=== PATIENT | male | born 1960 | race Two or more races ===

== ENCOUNTER 2025-01-31 14:25 | Inpatient (IN) | payer MEDICAID, OTHER ==
[~2025-01-31] VITALS: Ht 182.9 cm; Wt 93.1 kg
--- NOTE | 2025-01-31 15:22 | ED.PDOC ---
HPI (NEURO) HPI Comments 64 y/o M, with PMHx of HTN, HLD, and thyroid disease presents to the ED for CC of syncope. Patient states, he has had x2 syncopal episodes since, Thursday (01/28/25). 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 Patient relays, that he went to his PCP office today (01/31/25) for SS and was relayed to the ED for further evaluation and to rule out stroke. Patient denies weakness, changes in speech, blurred vision, or disorientation. Chief Complaint: Syncope Time Seen by MD: 15:05 Reviewed Notes: Nurses Notes, Medications, Allergies Information Source: Patient Mode of Arrival: Ambulatory Severity: Moderate Dizziness/Weakness Severity: Unable to do activities Headache Severity: None Timing: Days Duration: Since onset Prehospital treatment: None Weakness Location: Generalized Onset: At rest Circumstances: Recent stress Symptoms: Faintness Before: Normal During: Awake After: Normal Mentation History of: None Modifying factors: Nothing Associated Signs and Symptoms: None Past Medical History PAST MEDICAL HISTORY: High Lipids, HTN, Thyroid Surgical History: Denies all surgeries Family History Family History: Unknown Social History Smoker: Non-Smoker Alcohol: Denies ETOH Use Drugs: Denies Drug Use Lives In: Home Constitutional: denies: chills, diaphoresis, fatigue, fever, malaise, sweats, weakness, others EENTM: denies: blurred vision, double vision, ear bleeding, ear discharge, ear drainage, ear pain, ear ringing, eye pain, eye redness, hearing loss, mouth pain, mouth swelling, nasal discharge, nose bleeding, nose congestion, nose pain, photophobia, tearing, throat pain, throat swelling, voice changes, others Respiratory: denies: cough, hemoptysis, orthopnea, SOB at rest, shortness of breath, SOB with excertion, stridor, wheezing, others Cardiovascular: denies: chest pain, dizzy spells, diaphoresis, Dyspnea on exertion, edema, irregular heart beat, left arm pain, lightheadedness, palpitations, PND, syncope, others Gastrointestinal: denies: abdomen distended, abdominal pain, blood streaked bowels, constipated, diarrhea, dysphagia, difficulty swallowing, hematemesis, melena, nausea, poor appetite, poor fluid intake, rectal bleeding, rectal pain, vomiting, others Genitourinary: denies: burning, dysuria, flank pain, frequency, hematuria, inc ontinence, penile discharge, penile sore, pain, testicle pain, testicle swelling, urgency, others Neurological: reports: fainting; denies: dizziness, headache, left sided numbness, left sided weakness, numbness, paresthesia, pre-existing deficit, right sided numbness, right sided weakness, seizure, speech problems, tingling, tremors, weakness, others Musculoskeletal: denies: back pain, gout, joint pain, joint swelling, muscle pain, muscle stiffness, neck pain, others Integumetry: denies: bruises, change in color, change in hair/nails, dryness, laceration, lesions, lumps, rash, wounds, others Allergic/Immunocompromised: denies: Difficulty Healing, Frequent Infections, Hives, Itching, others Hematologic/Lymphatic: denies: anemia, blood clots, easy bleeding, easy bruising, swollen glands, others Endocrine: denies: excessive hunger, excessive sweating, excessive thirst, excessive urination, flushing, intolerance to cold, intolerance to heat, unexplained weight gain, unexplained weight loss, others Psychiatric: denies: anxiety, bipolar disorder, depression, hopeless, panic disorder, schizophrenia, sleepless, suicidal, others All Other Systems: Reviewed and Negative Physical Exam General Appearance: No Apparent Distress, Normal HEENT: Normal ENT Inspection, Pharynx Normal, TMs Normal Neck: Full Range of Motion, Non-Tender, Normal, Normal Inspection Respiratory: Chest Non-Tender, Lungs Clear, No Accessory Muscle Use, No Respiratory Distress, Normal Breath Sounds Cardiovascular: No Edema, No JVD, No Murmur, No Gallop, Normal Peripheral Pulses, Regular Rate/Rhythm Breast Exam: Deferred Gastrointestinal: No Organomegaly, Non Tender, No Pulsatile Mass, Normal Bowel Sounds, Soft Genitalia: Deferred Pelvic: Deferred Rectal: Deferred Extremities: No calf tenderness, Normal capillary refill, Normal inspection, Normal range of motion, Non-tender, No pedal edema Musculoskeletal : Apperance: Normal Neurologic: Alert, aircraft engine assembler II-XII nml as Tested, No Motor Deficits, Normal Affect, Normal Mood, No Sensory Deficits Cerebellar Function: Normal Reflexes: Normal Skin: Dry, Normal Color, Warm Lymphatic: No Adenopathy Was a procedure done? Was a procedure done?: No Differential Diagnosis (SZ) Seizure: Syncope General Weakness: Dehydration, Dysrhythmia, Electrolyte imbalance, Hypotension, TIA X-Ray, Labs, Meds, VS Vital Signs Date Time Temp Pulse Resp B/P (MAP) Pulse Ox O2 Delivery O2 Flow Rate FiO2 01/31/25 17:03 98.3 60 16 166/124 (138) 98 98.3 01/31/25 17:03 Room Air* 0 21 01/31/25 14:27 98.4 91 20 178/112 97 98.4 Lab Test 01/31/25 16:13 01/31/25 15:13 Range/Units Troponin I High Sensitivity 5 5 </=54 ng/L White Blood Count 6.2 4.4-10.8 10^3/uL Red Blood Count 5.30 4.5-5.90 10^6/uL Hemoglobin 15.8 13.5-17.5 g/dL Hematocrit 46.5 41.0-53.0 % Mean Corpuscular Volume 87.6 80.0-100.0 fL Mean Corpuscular Hemoglobin 29.7 28.0-32.0 pg Mean Corpuscular Hemoglobin Concent 33.9 32.0-36.0 g/dL Red Cell Distribution Width 15.1 H 11.8-14.3 % Platelet Count 162 140-450 10^3/uL Mean Platelet Volume 8.7 6.9-10.8 fL Neutrophils (%) (Auto) 73.2 37.0-80.0 % Lymphocytes (%) (Auto) 16.4 10.0-50.0 % Monocytes (%) (Auto) 7.9 0.0-12.0 % Eosinophils (%) (Auto) 1.9 0.0-7.0 % Basophils (%) (Auto) 0.6 0.0-2.0 % Neutrophils # (Auto) 4.5 1.6-8.6 10 ^3/uL Lymphocytes # (Auto) 1.0 0.4-5.4 10 ^3/uL Monocytes # (Auto) 0.5 0-1.3 10 ^3/uL Eosinophils # (Auto) 0.1 0-0.8 10 ^3/uL Basophils # (Auto) 0 0-0.2 10 ^3/uL Nucleated Red Blood Cells 0.1 % Sodium Level 143 136-145 mmol/L Potassium Level 3.9 3.5-5.1 mmol/L Chloride Level 104 98-107 mmol/L Carbon Dioxide Level 28 20-31 mmol/L Anion Gap 11 5-15 Blood Urea Nitrogen 11 9-23 mg/dL Creatinine 1.22 0.700-1.30 mg/dL Glomerular Filtration Rate Calc 67 >90 mL/min BUN/Creatinine Ratio 9.0 L 10.0-20.0 Serum Glucose 94 74-106 mg/dL Calcium Level 9.0 8.7-10.4 mg/dL [place] [id number] Ph: [phone] DIAGNOSTIC IMAGING Diagnostic Imaging Report : [id number] Signed PATIENT: CARLOS VILLELA ACCT: [id number] UNIT: [id number] : 1960 LOC: ER ROOM / BED: / AGE / SEX: 64 / M ADM STATUS: REG ER SERVICE 1504 ORDERING PHYSICIAN: CHUCK ORDOÑEZ MD PROCEDURE(s): CXR1 - CHEST XRAY 1 VIEW REASON: syncope ORDER NUMBER(s): [id number], ACCESSION NUMBER(s): [id number] EXAM: XY CHEST XRAY 1 VIEW HISTORY: syncope COMPARISON: None TECHNIQUE: Portable upright AP view of the chest was performed. FINDINGS: No pneumothorax, consolidative infiltrates, or pulmonary edema. The heart is not enlarged. There is thoracic degenerative disc disease. IMPRESSION: No acute intrathoracic process. ATED BY: IRENE MUNOZ MD DICTATED DATE/TIME: 01/31/251544 SIGNED BY: IRENE MUNOZ MD SIGNED DATE/TIME: 01/31/25 154 CC: Time of 1ST Reevaluation: 15:30 Reevaluation 1ST: Unchanged Time of 2ND Reevaluation: 18:23 Reevaluation 2ND: Improved Patient Education/Counseling: Diagnosis, Treatment, Prognosis, Need For Follow Up Family Education/Counseling: Diagnosis, Treatment, Prognosis, Need For Follow Up Comments This is a patient who presents to the ER after having suffer a syncopal episode. However patient is asymptomatic now my concerns are mostly for arrhythmias. Piece does not have any neurologic deficits. We have not caught any arrhythmias here in the emergency room on the EKGs so far therefore patient will need to be on the monitor as it admitted patient. Additional Information The following tests were ordered, and results were reviewed by me: EKG X3, TROP ONIN X3, BMP, CBC, CXR Additional information was gathered from interviewing the following independent historian: FRIEND I reviewed and agreed with the following test results read by other provider: CXR I discussed treatments and results with medical personnel and: PATIENT Comprehensive systems review obtained and negative except for what is stated in the HPI. Departure 1 Departure Time of Disposition: 18:24 Impression: Primary Impression: Syncope Disposition: ADMITTED INPATIENT Admit to: Tele Condition: Serious Discharged With: Self, Friend Critical Care Note Critical Care Time?: Yes (55 min-critical care time only) Critical care comment: due to concerns for patient's condition deteriorating, the care required my highest level of attention and readiness to intervene. i assessed the patient's condition, ordered the proper tests and treatments, reassessed for response and reviewed the results. i communicated with medical personnel and formulated a plan of care. total critical care time does not include any procedures Stability Stability form required: No I personally scribed for CHUCK ORDOÑEZ MD ([email or web address]) on 01/31/25 at 15:22. Electronically submitted by Rosa Nicholson ([email or web address]). I personally scribed for CHUCK ORDOÑEZ MD ([email or web address]) on 01/31/25 at 16:52. Electronically submitted by Rosa Nicholson ([email or web address]). CHUCK ORDOÑEZ MD Jan 31, 2025 15:22
[2025-01-31 15:37] LABS: Hematocrit 46.5 % (41.0-53.0); Hemoglobin 15.8 g/dL (13.5-17.5); Mean Corpuscular Hemoglobin 29.7 pg (28.0-32.0); Mean Corpuscular Volume 87.6 fL (80.0-100.0); Nucleated Red Blood Cells % 0.1 %
[2025-01-31 15:44] LABS: Chloride 104 mmol/L (98-107); Potassium 3.9 mmol/L (3.5-5.1); Sodium 143 mmol/L (136-145)
[2025-01-31 15:45] LABS: Anion Gap 11 (5-15); Calcium 9.0 mg/dL (8.7-10.4); Carbon Dioxide 28 mmol/L (20-31)
--- NOTE | 2025-01-31 15:48 | DVH ---
EXAM: XY CHEST XRAY 1 VIEW HISTORY: syncope COMPARISON: None TECHNIQUE: Portable upright AP view of the chest was performed. FINDINGS: No pneumothorax, consolidative infiltrates, or pulmonary edema. The heart is not enlarged. There is t horacic degenerative disc disease. IMPRESSION: No acute intrathoracic process.
[2025-01-31 15:50] LABS: BUN/Creatinine Ratio 9.0 (10.0-20.0); Blood Urea Nitrogen 11 mg/dL (9-23); Glucose 94 mg/dL (74-106)
[2025-01-31 19:33] LABS: Urine Protein, UAD 1+ (Negative)
[2025-01-31 20:06] LABS: INR 1.11 (0.9-1.15); Partial Thromboplastin Time 29.4 SEC (24.5-34.5); Prothrombin Time 11.6 sec (9.3-11.8)
[2025-01-31 20:07] VITALS: PULSE 78; RESP 20; O2SAT 97
--- NOTE | 2025-01-31 20:12 | ECG ---
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
[2025-01-31] MEDS: IOHEXOL 350 MG/ML 100ML IJ ONE (20:13)
--- NOTE | 2025-01-31 20:16 | DVH ---
EXAM: CT STROKE CTH INDICATION: cva TECHNIQUE: CT images of the head were obtained without administration of IV contrast. CT scans at [facility] use dose modulation, iterative reconstruction, and/or weight based dosing when appropriate to reduce radiation dose to as low as reasonably achievable. COMPARISON: None FINDINGS: PARENCHYMA: No acute hemorrhage. There is no mass effect, midline shift, or herniation. There is pres ervation of the solis white differentiation. Mild scattered hypoattenuation along the periventricular, centrum semiovale, and deep white matter tracts, which are nonspecific however statistically most li eugenio represent chronic microvascular ischemic change. VENTRICLES: No hydrocephalus. EXTRA-AXIAL SPACES: No extra-axial fluid collections. OTHER: The bony structures are intact. Visualized portions of the paranasal sinuses and mastoid air cells are clear. IMPRESSION: 1. No CT evidence of an acute intracranial abnormality. Chronic microvascular ischemic change inconsp icuous lacunar infarction particularly in the right centrum semiovale not excluded.
--- NOTE | 2025-01-31 21:27 | DVH ---
CLINICAL HISTORY: cva TECHNIQUE: CT angiogram of the head and neck was performed without and with intravenous contrast. 3D MIP reconstructed images were created and archived on the PACS system. This exam was performed accord ing to our departmental dose optimization program. Up-to-date CT equipment and radiation dose reducti on techniques are utilized as appropriate. CTDI 34 DLP 17 COMPARISON: CT STROKE CTH on DOS: 01/31/25 FINDINGS: CTA NECK: The common carotid, internal carotid, and vertebral arteries are patent with no evidence for high gra de narrowing, occlusion, and dissection. There is no significant narrowing at the carotid bulbs per N ASCET criteria. CTA HEAD: The anterior and posterior intracranial circulations are intact with no evidence for occlusion or ane urysm. There is a high-grade stenosis at the right carotid terminus. There is a small caliber left posterior communicating artery. IMPRESSION: No acute CTA abnormality of the major head and neck arterial vasculature. High-grade stenosis at the right carotid terminus.
[2025-01-31] MEDS: ATORVASTATIN 20 MG TAB PO SCH (22:00)
[2025-01-31] MEDS: ENOXAPARIN SOD 100 MG/1 ML SYRINGE SC SCH (22:00)
--- NOTE | 2025-01-31 22:29 | DVHHPRES ---
History of Present Illness Resident Creating Document: BAILEY DALE History of Present Illness Mr. Mosqueda is a 64-year-old male with prior medical history of hypertension, hypothyroidism, prediabetes, and medication noncompliance, who presents today with chief complaint of syncope. The patient states he has had 2 syncopal episodes since Thursday. He refers that on Thursday he was utilizing the bathroom when he lost consciousness stating he woke up on the ground approximately 10 seconds later. The following day he had another episode where he woke up on the ground on this occasion had weakness of the left leg, which would resolve on its own. He went to see his PCP who instructed the patient to go to the emergency department. On evaluation in the ED, the patient was hypertensive with other vital signs within normal range. Initial labs show CBC and chemical panel within normal range, UA was unremarkable. In the ED the patient had sudden o nset of left face and arm weakness and numbness associated with word slurring. Twelve lead EKG showed atrial fibrillation. Head CT was done showing no evidence of an acute intracranial abnormality. patient was evaluated by tele neuro who recommended CT angio of the head and neck which showed no acute CT abnormality of the major head and neck arterial vasculature, high-grade stenosis at the right carotid terminus. The patient was started on therapeutic Lovenox, aspirin, and Lipitor. He was admitted for further workup and monitoring. Cardiovascular: HTN Endocrine: Hypothyroidism, Other (Prediabetes) Past Surgical History: Other (Back surgery) Family History: Cancer (Small-cell lung cancer in mother, father, and brother), Hypertension (Father), Other (Sister: BPD and schizophrenia) Smoke: No ALCOHOL: none Drugs: None Lives: with Family Domestic Violence: Neg Review of Systems Review of Systems Constitutional: Denies weight loss, fever and chills. HEENT: Denies changes in vision and hearing. Respiratory: Denies shortness of breath and cough Cardiovascular: Denies chest discomfort or palpitations GI: Denies abdominal distention, abdominal pain, diarrhea : Denies dysuria and urinary frequency. Musculoskeletal: Refers localized back pain secondary to previous surgery Skin: Denies rash and pruritus. Neurological: denies dizziness headache vision or hearing problems Allergies: Coded Allergies: NO KNOWN ALLERGIES (Unverified , 01/31/25) Medications Current Medications Medications Dose Ordered Sig/Humphrey Route Start Time Stop Time Status Last Admin Dose Admin Enoxaparin Sodium 90 mg Q12HR SC 01/31/25 22:00 UNV Atorvastatin Calcium 40 mg HS PO 01/31/25 22:00 UNV Exam Vital Signs Vital Signs Date Time Temp Pulse Resp B/P (MAP) Pulse Ox O2 Delivery O2 Flow Rate FiO2 01/31/25 22:09 98.1 80 20 159/106 (123) 97 98.1 01/31/25 20:07 Room Air* 0 21 Exam General: The patient alert and oriented in person place and time. Patient following commands HEENT: Normocephalic, atraumatic, normal reactive pupils, EOM intact, pink conjunctiva, pink moist mucous membrane Respiratory/pulmonary: Bilateral chest expansion, no pain on palpation of chest wall, clear lungs bilaterally, vesicular murmurs present in almost all lung f ields, no associated crackles or wheezes. Cardiovascular: At the time of examination Normal RRR, normal S1 and S2, no murmurs Abdomen: Abdomen nondistended, normal bowel sounds, soft, there is no pain to palpation in any of the abdominal quadrants, no palpable masses. Extremities: No deformities, there is no peripheral edema present at the lower extremities, normal pulses Skin: No rashes or pruritus, there is no sacral edema present at this time. Neurological: Intact cranial nerves with no focal neurologic deficits, sensation intact bilateral upper extremities and lower extremities, strength 5/5 right upper and lower extremity, strength 5/5 left upper and lower extremity. Labs/Xrays Labs Test 01/31/25 18:40 01/31/25 18:20 01/31/25 16:13 01/31/25 15:13 Range/Units Urine Color Yellow Yellow Urine Clarity Clear Clear Urine pH 8.0 5.0-9.0 Urine Specific [place] 1.023 1.001-1.035 Urine Protein 1+ H Negative Urine Ketones Trace Negative Urine Blood Negative Negative /uL Urine Nitrite Negative Negative Urine Bilirubin Negative Negative Urine Urobilinogen Normal Negative mg/dL Urine Leukocyte Esterase Negative Negative /uL Urine RBC 4 0 - 3 /hpf Urine Microscopic WBC < 1 0-3 /HPF Urine Squamous Epithelial Cells None seen <5 /hpf Urine Bacteria None seen None Seen /hpf Urine Glucose Normal Normal mg/dL Prothrombin Time 11.6 9.3-11.8 sec Prothrombin Time INR 1.11 0.9-1.15 Activated Partial Thromboplast Time 29.4 24.5-34.5 SEC Magnesium Level 2.3 1.6-2.6 mg/dL Troponin I High Sensitivity 6 </=54 ng/L White Blood Count 6.2 4.4-10.8 10^3/uL Red Blood Count 5.30 4.5-5.90 10^6/uL Hemoglobin 15.8 13.5-17.5 g/dL Hematocrit 46.5 41.0-53.0 % Mean Corpuscular Volume 87.6 80.0-100.0 fL Mean Corpuscular Hemoglobin 29.7 28.0-32.0 pg Mean Corpuscular Hemoglobin Concent 33.9 32.0-36.0 g/dL Red Cell Distribution Width 15.1 H 11.8-14.3 % Platelet Count 162 140-450 10^3/uL Mean Platelet Volume 8.7 6.9-10.8 fL Neutrophils (%) (Auto) 73.2 37.0-80.0 % Lymphocytes (%) (Auto) 16.4 10.0-50.0 % Monocytes (%) (Auto) 7.9 0.0-12.0 % Eosinophils (%) (Auto) 1.9 0.0-7.0 % Basophils (%) (Auto) 0.6 0.0-2.0 % Neutrophils # (Auto) 4.5 1.6-8.6 10 ^3/uL Lymphocytes # (Auto) 1.0 0.4-5.4 10 ^3/uL Monocytes # (Auto) 0.5 0-1.3 10 ^3/uL Eosinophils # (Auto) 0.1 0-0.8 10 ^3/uL Basophils # (Auto) 0 0-0.2 10 ^3/uL Nucleated Red Blood Cells 0.1 % Sodium Level 143 136-145 mmol/L Potassium Level 3.9 3.5-5.1 mmol/L Chloride Level 104 98-107 mmol/L Carbon Dioxide Level 28 20-31 mmol/L Anion Gap 11 5-15 Blood Urea Nitrogen 11 9-23 mg/dL Creatinine 1.22 0.700-1.30 mg/dL Glomerular Filtration Rate Calc 67 >90 mL/min BUN/Creatinine Ratio 9.0 L 10.0-20.0 Serum Glucose 94 74-106 mg/dL Calcium Level 9.0 8.7-10.4 mg/dL B-Type Natriuretic Peptide 69.30 0-100 pg/mL SEPSIS Sepsis Screen Date sepsis recognized/suspect: Jan 31, 2025 Time Sepsis recognized/suspect: 2009 Recent Procedure: No On Antibiotic Therapy: No Respiratory Rate >20: No Heart Rate >90: No Temp<36 C (96.8 F) or >38.3 C: No SBP <90 or MAP <65 mmHG: No New Acute Mental Status Change: No Is the patient on CPAP, BIPAP,: No Physician Orders Continuous Ekg Monitoring 08,12,16,20,,04 (01/31/25 15:04) Chest Xray 1 View (01/31/25 15:04) Electrocardigram (01/31/25 16:04) Electrocardigram (01/31/25 18:04) Stroke Assessment (01/31/25 19:39) Vital Signs .PER UNIT PROTOCOL (01/31/25 19:39) Meat Curer (01/31/25 19:39) Accurate Weight In Kg (01/31/25 19:39) Electrocardigram (01/31/25 19:39) Accucheck (01/31/25 19:39) Ct Head Cva (01/31/25 19:39) * Neurology Consult (01/31/25 19:39) 2 Large Bore Ivs (20mg Or Larg (01/31/25 19:39) Nursing Dysphagia Screen (01/31/25 19:39) Neuro Checks Per Unit Protocol (01/31/25 19:39) Electrocardigram (01/31/25 20:39) Electrocardigram (01/31/25 22:39) Angio Head/Neck (01/31/25 19:49) Hepatic Panel (01/31/25 22:00) Free T4 (Free Thyroxine) (01/31/25 22:00) T3 Total (01/31/25 22:00) Hemoglobin A1c (01/31/25 22:00) Carotid Duplx W Color Dop (01/31/25 22:00) Echo 2d Mode Cardiac Dop (01/31/25 22:00) Lipid Panel (02/01/25 04:00) Complete Blood Count (02/01/25 04:00) Basic Metabolic Panel (02/01/25 04:00) Phosphorus (01/31/25 22:00) Thyroid Stimulating Hormone (01/31/25 22:00) Vitamin D, 25-Hydroxy (01/31/25 22:00) Vitamin B12 (01/31/25 22:00) Admit (01/31/25 22:00) Allergies (01/31/25 22:00) Code Status (01/31/25 22:00) Cardiac Diet-2gna,Lofat,Lochol (02/01/25 Breakfast) Condition: Stable (01/31/25 22:00) Stat Ekg For Chest Pain (01/31/25 22:00) Notify Md Of Changes From Base (01/31/25 22:00) Road Advisor For 24 Hours (01/31/25 22:00) Emergency Dysrhythmia Protocol (01/31/25:00) Rhythm Strips Once Every Shift (01/31/25 22:00) Enoxaparin Sodium (Lovenox) (01/31/25 22:00) Atorvastatin (Lipitor) (01/31/25 22:00) Electrocardigram (01/31/25 22:00) Aspirin Tablet (01/31/25 22:30) Aspirin Tablet (02/01/25 10:00) * Cardiology Consult (01/31/25 22:23) Vital Signs Date Time Temp Pulse Resp B/P (MAP) Pulse Ox O2 Delivery O2 Flow Rate FiO2 01/31/25 22:09 98.1 80 20 159/106 (123) 97 98.1 01/31/25 20:11 54 01/31/25 20:07 78 20 97 Room Air* 0 21 01/31/25 19:42 98.1 80 20 156/109 (125) 97 98.1 01/31/25 17:03 98.3 60 16 166/124 (138) 98 98.3 01/31/25 17:03 Room Air* 0 21 Laboratory Tests Test 01/31/25 15:13 White Blood Count 6.2 10^3/uL (4.4-10.8) Assessment/Plan Assessment/Plan Assessment and Plan: TIA - Head CT: no CT evidence of an acute intracranial abnormality. - Carotid Doppler: No hemodynamically significant cervical stenosis - Head/ neck CT angio: No acute CTA abnormality of the major head and neck arterial vasculature, high-grade stenosis at the right carotid terminus - Aspirin 325 mg p.o. once - Atorvastatin 40 mg p.o. HS - Echocardiogram pending - ABCD2: 4 - Ordered teleneurology Right Carotid Stenosis - Head/Neck CT Angio: High grade stenosis at the right carotid terminus - Cardiology has been consulted Paroxysmal Atrial Fibrillation (chads Vasc 2) - EKG: Atrial fibrillation - Enoxaparin 90 mg (1 mg/kg) q12 hours SC Hypothyroidism - TSH: 16.44, FT4: 0.91, Total T3: 1.41 - Levothyroxine 50 mcg PO qAM Hypertensive Urgency - Monitor BP Prediabetes - I have counseled the patient on healthy lifestyle habits Medication noncompliance - I have counseled the patient on the importance of maintaining medication adherence for ample control of his health. Diet: Cardiac DVT prophylaxis: Patient is on therapeutic dose of enoxaparin GI prophylaxis: Not indicated Case discussed with Dr. Obrien Goals of care discussed with the patient and his brother , Alonzo, at bedside for over 26 minutes. MODIFIED CODE STATUS: is agreeable to ACLS drugs and BiPAP. Plan discussed with: Patient, Other (Brother, Nurses) My Orders Orders - BAILEY DALE RESIDENT Procedure Category Date Status Time Hepatic Panel LAB 01/31/25 Logged 22:00 Free T4 (Free LAB 01/31/25 Logged Thyroxine) 22:00 T3 Total LAB 01/31/25 Logged 22:00 Hemoglobin A1c LAB 01/31/25 Logged 22:00 Carotid Duplx W Color US 01/31/25 Logged DOP 22:00 Echo 2d Mode Cardiac US 01/31/25 Logged DOP 22:00 Lipid Panel LAB 02/01/25 Verified 04:00 Complete Blood Count LAB 02/01/25 Verified 04:00 Basic Metabolic Panel LAB 02/01/25 Verified 04:00 Phosphorus LAB 01/31/25 Logged 22:00 Thyroid Stimulating LAB 01/31/25 Logged Hormone 22:00 Vitamin D, 25-Hydroxy LAB 01/31/25 Logged 22:00 Vitamin B12 LAB 01/31/25 Logged 22:00 Admit ADMIT 01/31/25 Transmitted 22:00 Allergies SARAH 01/31/25 In Process 22:00 Code Status CODE 01/31/25 Transmitted 22:00 Cardiac DIET 02/01/25 Transmitted Diet-2gna,Lofat,Lochol Breakfast Condition: Stable SARAH 01/31/25 In Process 22:00 Stat Ekg For Chest SARAH 01/31/25 In Process Pain 22:00 Notify Md Of Changes [facility] 01/31/25 In Process From Base 22:00 Road Advisor For [facility] 01/31/25 In Process 24 Hours 22:00 Emergency Dysrhythmia [facility] 01/31/25 In Process Protocol 22:00 Rhythm Strips Once [facility] 01/31/25 In Process Every Shift 22:00 Enoxaparin Sodium PHA 01/31/25 Logged (Lovenox) 22:00 Atorvastatin (Lipitor) PHA 01/31/25 Logged 22:00 Electrocardigram EKG 01/31/25 Logged 22:00 Aspirin Tablet PHA 01/31/25 Verified 22:30 Aspirin Tablet PHA 02/01/25 Verified 10:00 * Cardiology Consult CONS 01/31/25 Verified 22:23 Date of Service: Jan 31, 2025 Billing Provider: TYRONE OBRIEN MD Common Visit Codes: 57503-[id number] INP/OBS CARE (HIGH) Secondary Visit Codes: [id number] CARE PLAN 30 MINUTES BAILEY DALE RESIDENT Jan 31, 2025 22:29 AMEYA JACOBS RESIDENT Feb 01, 2025 06:56
--- NOTE | 2025-01-31 23:10 | DVH ---
Carotid Duplex Clinical History: Stroke Comparison: Same day CTA head/neck Technique: Duplex Doppler evaluation of the extracranial carotid and vertebral arteries including color Doppler and spectral/pulsed waveform analysis was performed. Findings: RIGHT SIDE: The peak systolic velocities are 67 cm/s in the CCA, 35 cm/s in the ICA. The ICA/CCA ratio is 0.5. The external carotid artery is patent with peak systolic velocity of 97 cm/s proximally. There is appropriate antegrade flow in the right vertebral artery. LEFT SIDE: The peak systolic velocities are 79 cm/s in the CCA, 59 cm/s in the ICA. The ICA/CCA ratio is 0.8. The external carotid artery is patent with peak systolic velocity of 55 cm/s proximally. There is appropriate antegrade flow in the left vertebral artery. Other: Mild atherosclerotic plaque at the carotid bulbs. IMPRESSION: No hemodynamically significant cervical stenosis.
[2025-01-31 23:16] LABS: Alanine Aminotransferase 23.0 U/L (7-40); Albumin 4.6 g/dL (3.2-4.8); Alkaline Phosphatase 98.0 U/L (46-116); Total Protein 7.4 g/dL (5.7-8.2)
[2025-01-31 23:17] LABS: Bilirubin, Direct 0.2 mg/dL (<0.3); Bilirubin, Total 0.6 mg/dL (0.2-1.0)
[2025-01-31 23:44] LABS: Free T4 (Free Thyroxine) 0.91 ng/dL (0.89-1.76)
[2025-01-31 23:45] VITALS: BP 136/95; PULSE 62; RESP 18; TEMP 98.1; O2SAT 96
[2025-02-01] VITALS (8 sets, daily range): BP systolic 117–155; BP diastolic 72–102; PULSE 62–81; RESP 17–20; TEMP 97.8–98.6; O2SAT 95–99
[2025-02-01] MEDS: LEVOTHYROXINE SODIUM 50 MCG TAB PO SCH (05:39)
[2025-02-01 06:59] LABS: Hematocrit 44.4 % (41.0-53.0); Hemoglobin 15.5 g/dL (13.5-17.5); Mean Corpuscular Hemoglobin 30.6 pg (28.0-32.0); Mean Corpuscular Volume 87.7 fL (80.0-100.0); Nucleated Red Blood Cells % 0.1 %
--- NOTE | 2025-02-01 07:06 | BSKYNEURO ---
[facility] Note # Demographics Consult Type: Acute Stroke Level 2 (4.5-24 hrs) Patient Location: Inpatient First Name: Jasper Last Name: Noa Date of : 1960 Age: 64 Gender: Male Facility: [facility] Time of Initial Page (): 02/01/2025 06:05 First Contact with Site (): 02/01/2025 06:05 # HPI History: 64 yo M HTN HLD, pre-DM, hypothyroidism not taking meds since 06/2024 presents 2 episodes of syncope beginning on Thursday then the next day Thursday, LOC and woke on floor, then weakness LLE admitted 01/31 in ED with 3rd event slurred, left droop, left sided weakness. He feels back to baseline. Reached nurse # Scores Time of exam and NIHSS (): 02/01/2025 06:21 Level of Consciousness 1a: [0] = Alert; keenly responsive LOC Questions 1b: [0] = Answers both questions correctly LOC Commands 1c: [0] = Performs both tasks correctly Best Gaze 2: [0] = Normal Visual 3: [0] = No visual loss Facial Palsy 4: [0] = Normal symmetrical movements Motor Arm Left 5a: [0] = No drift Motor Arm Right 5b: [0] = No drift Motor Leg Left 6a: [0] = No drift Motor Leg Right 6b: [0] = No drift Limb Ataxia 7: [0] = Absent Sensory 8: [0] = Normal Best Language 9: [0] = No aphasia Dysarthria 10: [0] = Normal Extinction and Inattention 11: [0] = No abnormality NIHSS Total: 0 # Data Other Labs: A1c 5.[address]: - no bleed - per radiologist read CTA Head: no large vessel occlusion CTA Neck: - per radiologist read R carotid terminus high grade stenosis Other Imaging: US carotid normal # Assessment Impression: - Transient Ischemic Attack History most concerning for TIA. Afib in the ED, on monitor. Now on treatment dosage Lovenox. # Plan Thrombolytic/Intervention: NOT IV Thrombolysis or IA Intervention candidate Thrombolytic Exclusion (< 3 hour window): - NIHSS = 0 Intraarterial Exclusion: - no large vessel occlusion (LVO) Target Blood Pressure: - SBP < 220 - DBP < 120 Labs: - hemoglobin A1c - lipid panel Diagnostic Test: - echo without bubble study - EEG less likely seizure but would obtain EEG (inpatient vs outpatient) Therapy/Evaluation: - NPO until swallow evaluation - PT/OT evaluation - speech/swallow consultation Medication: - anticoagulation with NOAC - start statin with goal of LDL < 70 Other: - If patient has any neurological deterioration please call me back immediately - will need event monitor or loop recorder as outpatient if atrial fibrillation not found as inpatient - I have discussed my recommendations with the referring provider - permissive hypertension Additional Recommendations: R carotid terminus high grade stenosis on CTA however US carotids (may be too distal for US to fruit or nut picker) normal - will need non-acute vascular surgery consultation to review for possible repeat CTA and consideration of intervention with CEA vs stent in 2 days to 2 weeks, however stroke may be related to afib # Logistics Attestation of consult completion: The patient is located at: [facility]. Facility staff participated in the visit. I performed this telemedicine visit from my offsite office utilizing interactive 2 way audio and visual telecommunication technology at the request of the onsite inpatient provider. Total time spent in telemedicine encounter: I spent 25 minutes reviewing clin ical data and/or imaging, obtaining history, examining the patient, communicating with the onsite care team, and in preparation of this report. # Demographics First Name: Jasper Last Name: Noa Facility: [facility] Electronically signed at 02/01/2025 07:06 ([place] Time) by Azael Cooney MD Yes AZAEL COONEY MD Feb 01, 2025 07:06
[2025-02-01 07:07] LABS: Chloride 103 mmol/L (98-107); Potassium 3.8 mmol/L (3.5-5.1); Sodium 140 mmol/L (136-145)
[2025-02-01 07:08] LABS: Anion Gap 12 (5-15); Calcium 9.0 mg/dL (8.7-10.4); Carbon Dioxide 25 mmol/L (20-31)
[2025-02-01 07:13] LABS: BUN/Creatinine Ratio 6.0 (10.0-20.0); Glucose 77 mg/dL (74-106); Triglycerides 108 mg/dL (< 150)
[2025-02-01 07:15] LABS: Cholesterol 156 mg/dL (< 200); HDL Cholesterol 41 mg/dL (40-59)
[2025-02-01 07:16] LABS: Blood Urea Nitrogen 7 mg/dL (9-23)
--- NOTE | 2025-02-01 12:09 | DVHINCON2 ---
Date Seen: Feb 01, 2025 Referring Physician MD [place] resident Reason for Consultation Symptomatic carotid stenosis History of Present Illness This is a 64-year-old male patient who presents to the emergency room with chief complaint of syncopal episodes. The patient reports two syncopal episodes on 01/29/2025. The patient reports that the first syncopal episode happened in the radiographer cardiac catheterization when he woke up to use the restroom. He states he was standing over the toilet urinating and suddenly the next thing he remembers is waking up on the ground. He is unsure how long he lost consciousness and is not sure if he hit his head. The 2nd episode happened later that day while he was outside doing yard work. He also reports waking up on the ground after losing consciousness. He scheduled an appointment with his primary care physician and was sent to the hospital by his PCP for concerns of stroke-like symptoms. The p atient reports that when he arrived to the hospital his brother noted that the patient began having slurred speech and started having generalized weakness with more weakness noted on the left side which prompted a code stroke to be called. A neurological evaluation has diagnosed the patient with a transient ischemic attack. Cardiology has been consulted at this time for head/neck CT findings of high-grade stenosis of the right carotid terminus. Initial twelve lead electrocardiogram reveals atrial fibrillation with low ventricular rate. Significant past medical history includes hypertension, thyroid disease, and morbid obesity. The patient reports he stopped taking all of his medications back in June and has been dealing with stressful family dynamics at home. Past Medical History Past medical history reviewed. No other significant than mentioned above. Past Surgical History Back surgery to L4-L5 Family History: FH: HTN (hypertension) FH: lung cancer Family History Family history reviewed. Social History Denies the use of tobacco, alcohol or illicit drugs. Allergies: Coded Allergies: NO KNOWN ALLERGIES (Unverified , 01/31/25) Home Meds Does not currently take any prescribed medications Current Medications Current Medications Medications (Trade) Dose Ordered Sig/Humphrey Route PRN Reason Start Time Stop Time Status Last Admin Enoxaparin Sodium (Lovenox) 90 mg Q12HR SC 01/31/25 22:00 02/01/25 09:59 Atorvastatin Calcium (Lipitor) 40 mg HS PO 01/31/25 22:00 01/31/25 22:00 Aspirin 81 mg DAILY PO 02/01/25 10:00 02/01/25 10:00 Levothyroxine Sodium (Synthroid Tablet) 50 mcg QAM@0600 PO 02/01/25 06:00 02/01/25 05:39 Review of Systems Constitutional: No symptom reported Ears, Nose, & Throat: No symptom reported Eyes: No symptom reported Neurological: Multiple syncopal episodes Pulmonary/Respiratory: No symptoms reported Cardiovascular: No symptom reported Gastrointestinal: No symptom reported Genitourinary: No symptom reported Musculoskeletal: No symptom reported Skin: No symptom reported Psychiatric: No symptom reported Endocrine: No symptom reported Hematologic/Lymphatic: No symptom reported Vital Signs Vital Signs Date Time Temp Pulse Resp B/P (MAP) Pulse Ox O2 Delivery O2 Flow Rate FiO2 02/01/25 04:03 Nasal Cannula* 2 28 02/01/25 04:00 97.8 62 19 131/82 (98) 98 97.8 Physical Exam General Appearance: Cooperative. Morbidly obese Pulmonary/Respiratory: Clear, bilateral breaths sounds. Cardiovascular/Chest: Regular rate and rhythm. Peripheral Pulses: 2+ Radial (R). 2+ Radial (L). 2+ Pedal (R). 2+ Pedal (L) Abdominal Exam: Normal bowel sounds. Ankle Exam: Negative ankle edema Lower extremities: Negative lower extremity edema Neuro/Mental Status: A/OX4, coherent. Thoughts/Psych: Normal thought pattern. Appropriate mood and affect. Good judgment and insight. Appearance: No acute distress. Skin Exam: Normal inspection. Normal color. Warm and dry. Labs/Diagnostic Data Labs Test 02/01/25 06:13 01/31/25 18:40 01/31/25 18:20 01/31/25 16:13 Range/Units White Blood Count 5.3 4.4-10.8 10^3/uL Red Blood Count 5.06 4.5-5.90 10^6/uL Hemoglobin 15.5 13.5-17.5 g/dL Hematocrit 44.4 41.0-53.0 % Mean Corpuscular Volume 87.7 80.0-100.0 fL Mean Corpuscular Hemoglobin 30.6 28.0-32.0 pg Mean Corpuscular Hemoglobin Concent 34.9 32.0-36.0 g/dL Red Cell Distribution Width 14.5 H 11.8-14.3 % Platelet Count 143 140-450 10^3/uL Mean Platelet Volume 8.4 6.9-10.8 fL Neutrophils (%) (Auto) 69.6 37.0-80.0 % Lymphocytes (%) (Auto) 17.7 10.0-50.0 % Monocytes (%) (Auto) 9.8 0.0-12.0 % Eosinophils (%) (Auto) 2.2 0.0-7.0 % Basophils (%) (Auto) 0.7 0.0-2.0 % Neutrophils # (Auto) 3.7 1.6-8.6 10 ^3/uL Lymphocytes # (Auto) 0.9 0.4-5.4 10 ^3/uL Monocytes # (Auto) 0.5 0-1.3 10 ^3/uL Eosinophils # (Auto) 0.1 0-0.8 10 ^3/uL Basophils # (Auto) 0 0-0.2 10 ^3/uL Nucleated Red Blood Cells 0.1 % Sodium Level 140 136-145 mmol/L Potassium Level 3.8 3.5-5.1 mmol/L Chloride Level 103 98-107 mmol/L Carbon Dioxide Level 25 20-31 mmol/L Anion Gap 12 5-15 Blood Urea Nitrogen 7 L 9-23 mg/dL Creatinine 1.17 0.700-1.30 mg/dL Glomerular Filtration Rate Calc 70 >90 mL/min BUN/Creatinine Ratio 6.0 L 10.0-20.0 Serum Glucose 77 74-106 mg/dL Calcium Level 9.0 8.7-10.4 mg/dL Triglycerides Level 108 < 150 mg/dL Cholesterol Level 156 < 200 mg/dL LDL Cholesterol 106 H < 100 mg/dL HDL Cholesterol 41 40-59 mg/dL Urine Color Yellow Yellow Urine Clarity Clear Clear Urine pH 8.0 5.0-9.0 Urine Specific [place] 1.023 1.001-1.035 Urine Protein 1+ H Negative Urine Ketones Trace Negative Urine Blood Negative Negative /uL Urine Nitrite Negative Negative Urine Bilirubin Negative Negative Urine Urobilinogen Normal Negative mg/dL Urine Leukocyte Esterase Negative Negative /uL Urine RBC 4 0 - 3 /hpf Urine Microscopic WBC < 1 0-3 /HPF Urine Squamous Epithelial Cells None seen <5 /hpf Urine Bacteria None seen None Seen /hpf Urine Glucose Normal Normal mg/dL Prothrombin Time 11.6 9.3-11.8 sec Prothrombin Time INR 1.11 0.9-1.15 Activated Partial Thromboplast Time 29.4 24.5-34.5 SEC Phosphorus Level 3.0 2.4-5.1 mg/dL Magnesium Level 2.3 1.6-2.6 mg/dL Total Bilirubin 0.6 0.2-1.0 mg/dL Direct Bilirubin 0.2 <0.3 mg/dL Aspartate Amino Transferase (AST) 30 13-40 U/L Alanine Aminotransferase (ALT) 23 7-40 U/L Alkaline Phosphatase 98 46-116 U/L Troponin I High Sensitivity 6 </=54 ng/L Total Protein 7.4 5.7-8.2 g/dL Albumin 4.6 3.2-4.8 g/dL Thyroid Stimulating Hormone (TSH) 16.44 H 0.55-4.78 uIU/mL Test 01/31/25 15:13 Range/Units Hemoglobin A1c 5.5 <5.7 % A1C B-Type Natriuretic Peptide 69.30 0-100 pg/mL Vitamin B12 Level 371 211-911 pg/mL Vitamin D 25-Hydroxy 40.0 30.0-100 ng/mL Free Thyroxine (T4) Calculated 0.91 0.89-1.76 ng/dL Total Triiodothyronine (TT3) 1.41 0.60-1.81 ng/mL Assessment Sick sinus syndrome Atrial fibrillation, newly diagnosed Hypertensive urgency Rule out structural heart disease Transient ischemic attack Right carotid stenosis Hypothyroidism Morbid obesity Medical noncompliance Plan/Recommendation We will continue with the following plan/recommendations (Dr. Gorman): Case discussed with . We will proceed with obtaining a transthoracic echocardiogram to evaluate cardiac function. Patient noted to have atrial fibrillation, this is a new onset per patient. [id number] score: 3 points, HAS- BLED: 1 point. Initiate therapeutic Lovenox (transition to DOAC prior discharge), hold antiarrhythmic agent given unknown duration of arrhythmia, hold rate control given episodic bradycardia. Slow ventricular rate reaching as low as 35bpm on cardiac exercise specialist. Patient also noted to have episodic periods of tachycardia. Given sick sinus syndrome syndrome with syncopal episodes, the patient is recommended to undergo permanent pacemaker implantation. Plan discussed with the patient full detail including risks and benefits. The patient is agreeable. We will schedule the patient at soonest availability on 02/02/2025. In the meantime, avoid AV johanna blocking agents, continue with permissive hypertension per Neurology recommendations. Continue with lipid- lowering agent. Pending vascular consultation for high-grade stenosis of right carotid. Thank you for allowing us to care for this patient. Please call with any questions or concerns. Critical care time spent: 44 minutes This medical document was created using an electronic medical record system with voice recognition software and computerized dictation system. Although this document has been carefully reviewed, there might still be some phonetic and typographical errors. Occasional wrong-word or ``sound-alike substitutions may have occurred due to the inherent limitations of voice recognition software. These areas are purely typographical due to imperfections of the software programs and do not reflect any compromise in the patient's medical care. Please read the chart carefully and recognize, using context, where these substitutions have occurred. Plan discussed with: Patient NYHA Physical activity limitations: NA Date of Service: Feb 01, 2025 Billing Provider: JATINDER RICKS Cardiology Common Codes: 03145-[id number] INP/OBS CARE (High) Cardiology Consultation Codes: [id number] CONSULT <45MIN JATINDER RICKS Feb 01, 2025 12:09
--- NOTE | 2025-02-01 14:46 | DVHPNRES ---
Progress Note Date Seen: Feb 01, 2025 Resident Creating Document: ERIKA SILVESTRE RESIDENT Has the PT tested + for MRSA If YES, has PT been informed?: No Medical Necessity Reason Pt with a Central, PICC or Fol: No Subjective Review of Systems Mr. Mosqueda is a 64-year-old male with prior medical history of hypertension, hypothyroidism, prediabetes, and medication noncompliance, who presents today with chief complaint of syncope. The patient states he has had 2 syncopal episodes since Thursday. He refers that on Thursday he was utilizing the bathroom when he lost consciousness stating he woke up on the ground approximately 10 seconds later. The following day he had another episode where he woke up on the ground on this occasion had weakness of the left leg, which would resolve on its own. He went to see his PCP who instructed the patient to go to the emergency department. On evaluation in the ED, the patient was hypertensive with other vital signs within normal range. Initial labs show CBC and chemical panel within normal range, UA was unremarkable. In the ED the patient had sudden onset of left face and arm weakness and numbness associated with word slurring. Twelve lead EKG showed atrial fibrillation. Head CT was done showing no evidence of an acute intracranial abnormality. patient was evaluated by tele neuro who recommended CT angio of the head and neck which showed no acute CT abnormality of the major head and neck arterial vasculature, high-grade stenosis at the right carotid terminus. The patient was started on therapeutic Lovenox, aspirin, and Lipitor. He was admitted for further workup and monitoring. Cardiovascular: HTN Endocrine: Hypothyroidism, Other (Prediabetes) Past Surgical History: Other (Back surgery) Family History: Cancer (Small-cell lung cancer in mother, father, and brother), Hypertension (Father), Other (Sister: BPD and schizophrenia) Smoke: No ALCOHOL: none Drugs: None Lives: with Family Domestic Violence: Neg ROS: 02/01/2025: Patient was seen and examined by me at the bedside. Patient reports feeling better and he has normal power and strength. Neurology is on board. We will continue anticoagulation with the aspirin 81 mg p.o., atorvastatin 40 mg HS and enoxaparin therapeutic dose. Vascular surgery consultation place, pending Objective vital signs Vital Sign Date Time Temp Pulse Resp B/P (MAP) Pulse Ox O2 Delivery O2 Flow Rate FiO2 02/01/25 08:00 Room Air* 0 21 02/01/25 08:00 62 02/01/25 04:00 97.8 19 131/82 (98) 98 97.8 Total Intake and Output 01/31/25 01/31/25 02/01/25 15:00 23:00 07:00 Intake Total 0 ml Output Total 400 ml Balance -400 ml medications Current Medications Medications Dose Ordered Sig/Humphrey Route Start Time Stop Time Status Last Admin Dose Admin Enoxaparin Sodium 90 mg Q12HR SC 01/31/25 22:00 02/01/25 09:59 90 MG Atorvastatin Calcium 40 mg HS PO 01/31/25 22:00 01/31/25 22:00 40 MG Aspirin 81 mg DAILY PO 02/01/25 10:00 02/01/25 10:00 81 MG Levothyroxine Sodium 50 mcg QAM@0600 PO 02/01/25 06:00 02/01/25 05:39 50 MCG Examination General: The patient alert and oriented in person place and time. Patient following commands HEENT: Normocephalic, atraumatic, normal reactive pupils, EOM intact, pink conjunctiva, pink moist mucous membrane Respiratory/pulmonary: Bilateral chest expansion, no pain on palpation of chest wall, clear lungs bilaterally, vesicular murmurs present in almost all lung barfield, no associated crackles or wheezes. Cardiovascular: At the time of examination Normal RRR, normal S1 and S2, no murmurs Abdomen: Abdomen nondistended, normal bowel sounds, soft, there is no pain to palpation in any of the abdominal quadrants, no palpable masses. Extremities: No deformities, there is no peripheral edema present at the lower extremities, normal pulses Skin: No rashes or pruritus, there is no sacral edema present at this time. Neurological: Intact cranial nerves with no focal neurologic deficits, sensation intact bilateral upper extremities and lower extremities, strength 5/5 right upper and lower extremity, strength 5/5 left upper and lower extremity. laboratory and microbiology Laboratory Tests 02/01/25 06:13 Test 02/01/25 06:13 Range/Units Serum Glucose 77 74-106 mg/dL Labs and/or images reviewed: Labs reviewed by me, Image(s) reviewed by me Problem List/Assessment/Plan Problem List/Assessment/Plan #TIA - Head CT: no CT evidence of an acute intracranial abnormality. - Carotid Doppler: No hemodynamically significant cervical stenosis - Head/ neck CT angio: No acute CTA abnormality of the major head and neck arterial vasculature, high-grade stenosis at the right carotid terminus - Aspirin 325 mg p.o. once - Atorvastatin 40 mg p.o. HS - Echocardiogram pending - ABCD2: 4 - Neurology on board, suggested NOT IV Thrombolysis or IA Intervention candidate. Target SBP less than 220, DBP less than 120; Statin goal of LDL less than 70; permissive hypertension; 'R carotid terminus high grade stenosis on CTA however US carotids (may be too distal for US to last picker) normal - will need non-acute vascular surgery consultation to review for possible repeat CTA and consideration of intervention with CEA vs stent in 2 days to 2 weeks, however stroke may be related to afib' -vascular surgery consult placed, pending #Right Carotid Stenosis - Head/Neck CT Angio: High grade stenosis at the right carotid terminus - Cardiology has been consulted #Paroxysmal Atrial Fibrillation (chads Vasc 2) - EKG: Atrial fibrillation - Enoxaparin 90 mg (1 mg/kg) q12 hours SC #Hypothyroidism - TSH: 16.44, FT4: 0.91, Total T3: 1.41 - Levothyroxine 50 mcg PO qAM #Hypertensive Urgency - Monitor BP #Prediabetes - I have counseled the patient on healthy lifestyle habits #Medication noncompliance - I have counseled the patient on the importance of maintaining medication adherence for ample control of his health. Diet: Cardiac DVT prophylaxis: Patient is on therapeutic dose of enoxaparin GI prophylaxis: Not indicated Case discussed with Dr. Obrien Goals of care discussed with the patient and his brother , Alonzo, at bedside for over 26 minutes. MODIFIED CODE STATUS: is agreeable to ACLS drugs and BiPAP. Plan discussed with: Patient Date of Service: Feb 01, 2025 Billing Provider: TYRONE OBRIEN MD Common Visit Codes: [id number] INP/OBS CARE(HIGH) ERIKA SILVESTRE Feb 01, 2025 14:46 TYRONE OBRIEN MD Feb 01, 2025 17:46
--- NOTE | 2025-02-01 19:01 | DVHCONRES ---
Date Seen: Feb 01, 2025 Resident Creating Document: EILEEN CHRISTENSEN Jr., MD Referring Physician madelyn Reason for Consultation syncopal episode History of Present Illness 64-year-old male patient who presents to the emergency room with chief complaint of syncopal episodes. The patient reports two syncopal episodes on 01/29/2025. 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 He states he was standing 0 wrist orally urinating and suddenly the next thing he remembers is waking up on the ground. He is unsure how long he lost consciousness in his not sure if he hit his head. The 2nd episode happened later that day while he was outside doing yd work. He also reports waking up on the ground after losing consciousness. He scheduled an appointment with his primary care physician and was sent to the hospital by his PCP for concerns of stroke-like symptoms. The patient reports that when he arrived to the hospital his brother noted that the patient began having slurred speech and started having generalized weakness with more weakness noted on the left side which prompted a code stroke to be called. A neurological evaluation has diagnosed the patient with a transient ischemic attack. Past Medical History htn, dm Past Surgical History back surgery Family History: FH: HTN (hypertension) FH: lung cancer Family History ca Social History non smoker and drinker Allergies: Coded Allergies: NO KNOWN ALLERGIES (Unverified , 01/31/25) Current Medications Current Medications Medications (Trade) Dose Ordered Sig/Humphrey Route PRN Reason Start Time Stop Time Status Last Admin Enoxaparin Sodium (Lovenox) 90 mg Q12HR SC 01/31/25 22:00 02/01/25 09:59 Atorvastatin Calcium (Lipitor) 40 mg HS PO 01/31/25 22:00 01/31/25 22:00 Aspirin 81 mg DAILY PO 02/01/25 10:00 02/01/25 10:00 Levothyroxine Sodium (Synthroid Tablet) 50 mcg QAM@0600 PO 02/01/25 06:00 02/01/25 05:39 Review of Systems Constitutional: Denies weight loss, fever and chills. HEENT: Denies changes in vision and hearing. Respiratory: Denies shortness of breath and cough Cardiovascular: Denies chest discomfort or palpitations GI: Denies abdominal distention, abdominal pain, diarrhea : Denies dysuria and urinary frequency. Musculoskeletal: Refers localized back pain secondary to previous surgery Skin: Denies rash and pruritus. Neurological: denies dizziness headache vision or hearing problems Vital Signs Vital Signs Date Time Temp Pulse Resp B/P (MAP) Pulse Ox O2 Delivery O2 Flow Rate FiO2 02/01/25 13:00 98.6 72 18 155/88 (110) 97 98.6 02/01/25 08:00 Room Air* 0 21 Physical Exam HEENT: Normocephalic, atraumatic, normal reactive pupils, EOM intact, pink conjunctiva, pink moist mucous membrane Respiratory/pulmonary: Bilateral chest expansion, no pain on palpation of chest wall, clear lungs bilaterally, vesicular murmurs present in almost all lung barfield, no associated crackles or wheezes. Cardiovascular: At the time of examination Normal RRR, normal S1 and S2, no murmurs Abdomen: Abdomen nondistended, normal bowel sounds, soft, there is no pain to palpation in any of the abdominal quadrants, no palpable masses. Extremities: No deformities, there is no peripheral edema present at the lower extremities,palp. pedal pulses Skin: No rashes or pruritus, there is no sacral edema present at this time. Neurological: Intact cranial nerves with no focal neurologic deficits, sensation intact bilateral upper extremities and lower extremities, strength 5/5 right upper and lower extremity, strength 5/5 left upper and lower extremity. Labs/Diagnostic Data Labs Test 02/01/25 06:13 01/31/25 18:40 01/31/25 18:20 01/31/25 16:13 Range/Units White Blood Count 5.3 4.4-10.8 10^3/uL Red Blood Count 5.06 4.5-5.90 10^6/uL Hemoglobin 15.5 13.5-17.5 g/dL Hematocrit 44.4 41.0-53.0 % Mean Corpuscular Volume 87.7 80.0-100.0 fL Mean Corpuscular Hemoglobin 30.6 28.0-32.0 pg Mean Corpuscular Hemoglobin Concent 34.9 32.0-36.0 g/dL Red Cell Distribution Width 14.5 H 11.8-14.3 % Platelet Count 143 140-450 10^3/uL Mean Platelet Volume 8.4 6.9-10.8 fL Neutrophils (%) (Auto) 69.6 37.0-80.0 % Lymphocytes (%) (Auto) 17.7 10.0-50.0 % Monocytes (%) (Auto) 9.8 0.0-12.0 % Eosinophils (%) (Auto) 2.2 0.0-7.0 % Basophils (%) (Auto) 0.7 0.0-2.0 % Neutrophils # (Auto) 3.7 1.6-8.6 10 ^3/uL Lymphocytes # (Auto) 0.9 0.4-5.4 10 ^3/uL Monocytes # (Auto) 0.5 0-1.3 10 ^3/uL Eosinophils # (Auto) 0.1 0-0.8 10 ^3/uL Basophils # (Auto) 0 0-0.2 10 ^3/uL Nucleated Red Blood Cells 0.1 % Sodium Level 140 136-145 mmol/L Potassium Level 3.8 3.5-5.1 mmol/L Chloride Level 103 98-107 mmol/L Carbon Dioxide Level 25 20-31 mmol/L Anion Gap 12 5-15 Blood Urea Nitrogen 7 L 9-23 mg/dL Creatinine 1.17 0.700-1.30 mg/dL Glomerular Filtration Rate Calc 70 >90 mL/min BUN/Creatinine Ratio 6.0 L 10.0-20.0 Serum Glucose 77 74-106 mg/dL Calcium Level 9.0 8.7-10.4 mg/dL Triglycerides Level 108 < 150 mg/dL Cholesterol Level 156 < 200 mg/dL LDL Cholesterol 106 H < 100 mg/dL HDL Cholesterol 41 40-59 mg/dL Urine Color Yellow Yellow Urine Clarity Clear Clear Urine pH 8.0 5.0-9.0 Urine Specific [place] 1.023 1.001-1.035 Urine Protein 1+ H Negative Urine Ketones Trace Negative Urine Blood Negative Negative /uL Urine Nitrite Negative Negative Urine Bilirubin Negative Negative Urine Urobilinogen Normal Negative mg/dL Urine Leukocyte Esterase Negative Negative /uL Urine RBC 4 0 - 3 /hpf Urine Microscopic WBC < 1 0-3 /HPF Urine Squamous Epithelial Cells None seen <5 /hpf Urine Bacteria None seen None Seen /hpf Urine Glucose Normal Normal mg/dL Prothrombin Time 11.6 9.3-11.8 sec Prothrombin Time INR 1.11 0.9-1.15 Activated Partial Thromboplast Time 29.4 24.5-34.5 SEC Phosphorus Level 3.0 2.4-5.1 mg/dL Magnesium Level 2.3 1.6-2.6 mg/dL Total Bilirubin 0.6 0.2-1.0 mg/dL Direct Bilirubin 0.2 <0.3 mg/dL Aspartate Amino Transferase (AST) 30 13-40 U/L Alanine Aminotransferase (ALT) 23 7-40 U/L Alkaline Phosphatase 98 46-116 U/L Troponin I High Sensitivity 6 </=54 ng/L Total Protein 7.4 5.7-8.2 g/dL Albumin 4.6 3.2-4.8 g/dL Thyroid Stimulating Hormone (TSH) 16.44 H 0.55-4.78 uIU/mL Test 01/31/25 15:13 Range/Units Hemoglobin A1c 5.5 <5.7 % A1C B-Type Natriuretic Peptide 69.30 0-100 pg/mL Vitamin B12 Level 371 211-911 pg/mL Vitamin D 25-Hydroxy 40.0 30.0-100 ng/mL Free Thyroxine (T4) Calculated 0.91 0.89-1.76 ng/dL Total Triiodothyronine (TT3) 1.41 0.60-1.81 ng/mL Carotid Duplex Clinical History: Stroke Comparison: Same day CTA head/neck Technique: Duplex Doppler evaluation of the extracranial carotid and vertebral arteries including color Doppler and spectral/pulsed waveform analysis was performed. Findings: RIGHT SIDE: The peak systolic velocities are 67 cm/s in the CCA, 35 cm/s in the ICA. The ICA/CCA ratio is 0.5. The external carotid artery is patent with peak systolic velocity of 97 cm/s proximally. There is appropriate antegrade flow in the right vertebral artery. LEFT SIDE: The peak systolic velocities are 79 cm/s in the CCA, 59 cm/s in the ICA. The ICA/CCA ratio is 0.8. The external carotid artery is patent with peak systolic velocity of 55 cm/s proximally. There is appropriate antegrade flow in the left vertebral artery. Other: Mild atherosclerotic plaque at the carotid bulbs. IMPRESSION: No hemodynamically significant cervical stenosis. CLINICAL HISTORY: cva TECHNIQUE: CT angiogram of the head and neck was performed without and with intravenous contrast. 3D MIP reconstructed images were created and archived on the PACS system. This exam was performed according to our departmental dose optimization program. Up-to-date CT equipment and radiation dose reduction techniques are utilized as appropriate. CTDI 34 DLP 17 COMPARISON: CT STROKE CTH on DOS: 01/31/25 FINDINGS: CTA NECK: The common carotid, internal carotid, and vertebral arteries are patent with no evidence for high grade narrowing, occlusion, and dissection. There is no significant narrowing at the carotid bulbs per NASCET criteria. CTA HEAD: The anterior and posterior intracranial circulations are intact with no evidence for occlusion or aneurysm. There is a high-grade stenosis at the right carotid terminus. There is a small caliber left posterior communicating artery. IMPRESSION: No acute CTA abnormality of the major head and neck arterial vasculature. High-grade stenosis at the right carotid terminus. Assessment syncopal episode. with No acute CTA abnormality of the major head and neck arterial vasculature, high-grade stenosis at the right carotid terminus Plan/Recommendation Dual antiplatlet therapy (asa/plavix) lipid, bp and dm control Plan discussed with: Patient EILEEN CHRISTENSEN Jr., MD Feb 01, 2025 19:01
[2025-02-02] VITALS (13 sets, daily range): BP systolic 123–163; BP diastolic 70–115; PULSE 72–103; RESP 13–19; TEMP 97.2–98.3; O2SAT 94–99
[2025-02-02 07:48] LABS: Anion Gap 11 (5-15); Carbon Dioxide 23 mmol/L (20-31); Chloride 105 mmol/L (98-107); Potassium 4.1 mmol/L (3.5-5.1); Sodium 139 mmol/L (136-145)
[2025-02-02 07:49] LABS: Calcium 9.2 mg/dL (8.7-10.4)
[2025-02-02 07:54] LABS: BUN/Creatinine Ratio 7.1 (10.0-20.0); Blood Urea Nitrogen 9 mg/dL (9-23); Glucose 85 mg/dL (74-106)
[2025-02-02 07:55] LABS: Hematocrit 48.4 % (41.0-53.0); Hemoglobin 16.7 g/dL (13.5-17.5); Mean Corpuscular Hemoglobin 30.1 pg (28.0-32.0); Mean Corpuscular Volume 87.5 fL (80.0-100.0); Nucleated Red Blood Cells % 0.3 %
[2025-02-02] MEDS: VANCOMYCIN 1GM/250ML KIT 250 ML IV ONE (11:51)
[2025-02-02] MEDS: VANCOMYCIN HCL 1000 MG VL ONE (11:51)
[2025-02-02] MEDS: IODIXANOL 320MG/ML 100ML BTL IV ONE (11:51)
[2025-02-02] MEDS: LIDOCAINE W/ EPINEPHRINE 2% INJ 20ML VIAL ONE (11:51)
[2025-02-02] MEDS: LIDOCAINE 2%HCL (LOCAL ANESTH.) INJ 20ML MDV ONE (11:52)
[2025-02-02] MEDS: fentaNYL CITRATE 100 MCG/2 ML VL ONE (12:14)
[2025-02-02] MEDS: MIDAZOLAM HCL 2MG/2ML 2ml VIAL (1mg/ml) ONE (12:15)
--- NOTE | 2025-02-02 12:24 | DVHPNRES ---
Progress Note Date Seen: Feb 02, 2025 Resident Creating Document: ERIKA SILVESTRE RESIDENT Has the PT tested + for MRSA If YES, has PT been informed?: No Medical Necessity Reason Pt with a Central, PICC or Fol: No Subjective Review of Systems Mr. Mosqueda is a 64-year-old male with prior medical history of hypertension, hypothyroidism, prediabetes, and medication noncompliance, who presents today with chief complaint of syncope. The patient states he has had 2 syncopal episodes since Thursday. He refers that on Thursday he was utilizing the bathroom when he lost consciousness stating he woke up on the ground approximately 10 seconds later. The following day he had another episode where he woke up on the ground on this occasion had weakness of the left leg, which would resolve on its own. He went to see his PCP who instructed the patient to go to the emergency department. On evaluation in the ED, the patient was hypertensive with other vital signs within normal range. Initial labs show CBC and chemical panel within normal range, UA was unremarkable. In the ED the patient had sudden onset of left face and arm weakness and numbness associated with word slurring. Twelve lead EKG showed atrial fibrillation. Head CT was done showing no evidence of an acute intracranial abnormality. patient was evaluated by tele neuro who recommended CT angio of the head and neck which showed no acute CT abnormality of the major head and neck arterial vasculature, high-grade stenosis at the right carotid terminus. The patient was started on therapeutic Lovenox, aspirin, and Lipitor. He was admitted for further workup and monitoring. Cardiovascular: HTN Endocrine: Hypothyroidism, Other (Prediabetes) Past Surgical History: Other (Back surgery) Family History: Cancer (Small-cell lung cancer in mother, father, and brother), Hypertension (Father), Other (Sister: BPD and schizophrenia) Smoke: No ALCOHOL: none Drugs: None Lives: with Family Domestic Violence: Neg ROS: 02/01/2025: Patient was seen and examined by me at the bedside. Patient reports feeling better and he has normal power and strength. Neurology is on board. We will continue anticoagulation with the aspirin 81 mg p.o., atorvastatin 40 mg HS and enoxaparin therapeutic dose. Vascular surgery consultation place, pending 02/02/2025: Patient was seen and examined by me at the bedside. Patient reports feeling all right and has normal power and strength. the surgery on board suggested aspirin and Plavix and to control comorbidities. Cardiology on board and patient underwent successful placement of permanent pacemaker today. A chest x-ray was ordered for evaluation of placement. Impression: Successful placement of permanent pacemaker. Dual-chamber pacing leads in place with adequate capture and sensitivity. No complications Objective vital signs Vital Sign Date Time Temp Pulse Resp B/P (MAP) Pulse Ox O2 Delivery O2 Flow Rate FiO2 02/02/25 09:46 98.2 82 17 133/88 (103) 97 98.2 02/01/25 20:00 Room Air* 0 21 Total Intake and Output 02/01/25 02/01/25 02/02/25 15:00 23:00 07:00 Intake Total 840 ml 470 ml Output Total 200 ml Balance 840 ml 270 ml medications Current Medications Medications Dose Ordered Sig/Humphrey Route Start Time Stop Time Status Last Admin Dose Admin Enoxaparin Sodium 90 mg Q12HR SC 01/31/25 22:00 02/01/25 21:40 90 MG Atorvastatin Calcium 40 mg HS PO 01/31/25 22:00 02/01/25 21:40 40 MG Aspirin 81 mg DAILY PO 02/01/25 10:00 02/01/25 10:00 81 MG Levothyroxine Sodium 50 mcg QAM@0600 PO 02/01/25 06:00 02/02/25 05:44 50 MCG Examination General: The patient alert and oriented in person place and time. Patient following commands HEENT: Normocephalic, atraumatic, normal reactive pupils, EOM intact, pink conjunctiva, pink moist mucous membrane Respiratory/pulmonary: Bilateral chest expansion, no pain on palpation of chest wall, clear lungs bilaterally, vesicular murmurs present in almost all lung barfield, no associated crackles or wheezes. Cardiovascular: At the time of examination Normal RRR, normal S1 and S2, no murmurs Abdomen: Abdomen nondistended, normal bowel sounds, soft, there is no pain to palpation in any of the abdominal quadrants, no palpable masses. Extremities: No deformities, there is no peripheral edema present at the lower extremities, normal pulses Skin: No rashes or pruritus, there is no sacral edema present at this time. Neurological: Intact cranial nerves with no focal neurologic deficits, sensation intact bilateral upper extremities and lower extremities, strength 5/5 right upper and lower extremity, strength 5/5 left upper and lower extremity. laboratory and microbiology Laboratory Tests 02/02/25 06:46 Test 02/02/25 06:46 Range/Units Serum Glucose 85 74-106 mg/dL Labs and/or images reviewed: Labs reviewed by me, Image(s) reviewed by me Problem List/Assessment/Plan Problem List/Assessment/Plan #Transient ischemic attack - Head CT: no CT evidence of an acute intracranial abnormality. - Carotid Doppler: No hemodynamically significant cervical stenosis - Head/ neck CT angio: No acute CTA abnormality of the major head and neck arterial vasculature, high-grade stenosis at the right carotid terminus - Aspirin 325 mg p.o. once - Atorvastatin 40 mg p.o. HS - Echocardiogram pending - ABCD2: 4 - Neurology on board, suggested NOT IV Thrombolysis or IA Intervention candidate. 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) normal - will need non-acute vascular surgery consultation to review for possible repeat CTA and consideration of intervention with CEA vs stent in 2 days to 2 weeks, however stroke may be related to afib' -vascular surgery consult suggested aspirin and Plavix to be continued and to control comorbidities #Right Carotid Stenosis - Head/Neck CT Angio: High grade stenosis at the right carotid terminus - Cardiology has been consulted #Sick sinus syndrome #Rule out structural heart disease #Second-degree AV block #Paroxysmal Atrial Fibrillation (chads Vasc 2), newly diagnosed - EKG: Atrial fibrillation - Enoxaparin 90 mg (1 mg/kg) q12 hours SC - Cardiology on board and patient underwent successful placement of permanent pacemaker today. - A chest x-ray was ordered for evaluation of placement. Impression: Successful placement of permanent pacemaker. Dual-chamber pacing leads in place with adequate capture and sensitivity. No complications -The pacemaker device placedis an Amvia edge DRT-T by [employer]. Reference number is [id number] serial number [id number] The atrial lead is a Biotronik S 53 and the ventricular lead is a Biotronik S 60. Atrial lead serial number [id number] with a threshold of three mV P waves at 0.4 milliseconds and 625 Ohms of impedance The ventricular lead is a Biotronik S 60 serial number [id number]. R-wave of seven with 0.8 volts at 0.4 milliseconds and 840 Ohms of impedance. Pacing parameters are at a DDDR mode at a rate of 60/130. Av delay of 200 milliseconds a post ventricular refractory period of 275 milliseconds we will be RA sensitivity at 0.5 mV with a maximum RV sensitivity auto at 2 mV RA/RV output 3.5 volts at 0.4 milliseconds. #Hypothyroidism - TSH: 16.44, FT4: 0.91, Total T3: 1.41 - Levothyroxine 50 mcg PO qAM #Hypertensive Urgency - Monitor BP #Prediabetes - I have counseled the patient on healthy lifestyle habits #Medication noncompliance - I have counseled the patient on the importance of maintaining medication adherence for ample control of his health. #Morbid obesity, bmi 28.8 -pt counselled on need of exercise and diet as well as lifestyle modification as well as need of weight loss Diet: Cardiac DVT prophylaxis: Patient is on therapeutic dose of enoxaparin GI prophylaxis: Not indicated Case discussed with Dr. Obrien Plan discussed with: Patient Date of Service: Feb 02, 2025 Billing Provider: TYRONE OBRIEN MD Common Visit Codes: [id number] INP/OBS CARE(HIGH) ERIKA SILVESTRE RESIDENT Feb 02, 2025 12:24 TYRONE OBRIEN MD Feb 02, 2025 20:06
--- NOTE | 2025-02-02 13:26 | DVHOP2 ---
Operative Report - 2 Report Details Date: 02/02/25 Preop Diagnosis: Second-degree AV block Postop Diagnosis: Successful permanent pacemaker placement Surgeon: Eri Gorman MD Anesthesiologist: Conscious sedation Anesthesia: Mac, Local Consent: The patient was informed of the risks and benefits of the procedure. These include but are not limited to complications of anesthesia, postoperative infection, incomplete relief of symptoms, recurrence of symptoms, damage to blood vessels, nerves and tendons, deep venous thrombosis, pulmonary embolism and possible need for repeat surgery in the future. Complications: No complications Findings: Second-degree AV block. Successful placement of permanent pacemaker Indications for Surgery: Second-degree AV block Name of Procedure Performed Permanent pacemaker implantation Procedure Details Procedure Details: Prior local anesthesia with 2% lidocaine to the left pectoral area and full informed consent obtained the patient was prepped and draped in the usual fashion followed by an incision of the left pectoral area and dissection planes with the electrocautery and blunt dissection. We formed a pocket under the pectoral fascia and flushed with antibiotic solution. We then impacted with an antibiotic filled Ray-Javier sponge. We then placed peel-away sheaths with J curved guidewires into the subclavian vein and placed active fixation electrodes into the right ventricular apex and right atrial appendage. These were sutured with 0 Ethibond after adequate capture and sensitivity thresholds were obtained. The generator was then connected to the leads and the Ray-Javier sponge was removed. The generator was placed into the pocket in the pocket was closed with 3-0 Vicryl and the skin was closed with 4-0 Monocryl. Fluoroscopic guidance was used throughout the procedure. Patient tolerated the procedure well there were no complications. The pacemaker device placedis an Amvia edge DRT-T by [employer]. Reference number is [id number] serial number [id number] The atrial lead is a Biotronik S 53 and the ventricular lead is a Biotronik S 60. Atrial lead serial number [id number] with a threshold of three mV P waves at 0.4 milliseconds and 625 Ohms of impedance The ventricular lead is a Biotronik S 60 serial number [id number]. R-wave of seven with 0.8 volts at 0.4 milliseconds and 840 Ohms of impedance. Pacing parameters are at a DDDR mode at a rate of 60/130. Av delay of 200 milliseconds a post ventricular refractory period of 275 milliseconds we will be RA sensitivity at 0.5 mV with a maximum RV sensitivity auto at 2 mV RA/RV output 3.5 volts at 0.4 milliseconds. A chest x-ray was ordered for evaluation of placement. Impression: Successful placement of permanent pacemaker. Dual-chamber pacing leads in place with adequate capture and sensitivity. No complications. As mentioned a chest x-ray will be ordered as well as an EKG. Risk factor modification to continue. Condition Good Disposition Still a Patient Date of Service: Feb 02, 2025 Billing Provider: ERI GORMAN Sr., MD Cardiology Common Codes: [id number] INP/OBS CARE (High) Card. Pacer Implants/Gen [id number]/REPLACE DUAL LEAD PACER ERI GORMAN Sr., MD Feb 02, 2025 13:26
--- NOTE | 2025-02-02 14:10 | ECG ---
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
--- NOTE | 2025-02-02 14:16 | DVH ---
CHEST RADIOGRAPH Indication: S/P PACEMAKER Technique: Single frontal view of the chest was obtained Comparison: XY CHEST XRAY 1 VIEW on DOS: 01/31/25 FINDINGS: Lines and Tubes: Dual-chamber pacemaker in place with pulse generator over the left chest Lungs: No focal consolidation. Pleura: No effusion. No pneumothorax. Cardiomediastinal contours: Unremarkable Bones: No acute osseous abnormality. IMPRESSION: 1. No acute cardiopulmonary disease. 2. Interval placement of pacemaker.
[2025-02-02] MEDS: HYDROcodone-ACET 5/325MG TAB PO ONE (20:32)
[2025-02-02] MEDS: APIXABAN 5 MG TAB PO SCH (22:00)
[2025-02-03] VITALS (8 sets, daily range): BP systolic 15–155; BP diastolic 91–128; PULSE 20–98; RESP 15–20; TEMP 96.4–98.5; O2SAT 94–100
--- NOTE | 2025-02-03 05:52 | DVH ---
CHEST RADIOGRAPH Indication: CXR FOR PACEMAKER/ICD LEAD PLACEMENT Technique: 1 view Comparison: XY CHEST PORTABLE on DOS: 02/02/25, XY CHEST XRAY 1 VIEW on DOS: 01/31/25 FINDINGS: Lines and Tubes: Redemonstrated left implanted cardiac device. Lungs/Pleura: No evident change, with a portion of the left chest excluded. Cardiomediastinum: Unchanged. Other: Unchanged osseous structures. IMPRESSION: No significant change from the prior exam, with a portion of the left chest excluded.
[2025-02-03] MEDS: HYDROcodone-ACET 5/325MG TAB PO ONE ×2 (05:56→22:33)
[2025-02-03 07:31] LABS: Hematocrit 45.9 % (41.0-53.0); Hemoglobin 16.0 g/dL (13.5-17.5); Mean Corpuscular Hemoglobin 30.4 pg (28.0-32.0); Mean Corpuscular Volume 87.0 fL (80.0-100.0); Nucleated Red Blood Cells % 0.2 %
[2025-02-03 07:38] LABS: Anion Gap 11 (5-15); Carbon Dioxide 23 mmol/L (20-31); Chloride 105 mmol/L (98-107); Potassium 4.1 mmol/L (3.5-5.1); Sodium 139 mmol/L (136-145)
[2025-02-03 07:39] LABS: Calcium 9.0 mg/dL (8.7-10.4)
[2025-02-03 07:44] LABS: BUN/Creatinine Ratio 9.5 (10.0-20.0); Blood Urea Nitrogen 12 mg/dL (9-23); Glucose 101 mg/dL (74-106)
--- NOTE | 2025-02-03 15:15 | DVHPN2 ---
Consult Progress Note Subjective Other Systems: Remains in paced rhythm on ekg monitor tech Dressing to left upper chest remains clean dry and intact Objective vital signs Vital Sign Date Time Temp Pulse Resp B/P (MAP) Pulse Ox O2 Delivery O2 Flow Rate FiO2 02/03/25 13:00 98.2 84 20 147/104 (118) 95 98.2 02/02/25 20:00 Room Air* 0 21 Total Intake and Output 02/02/25 02/02/25 02/03/25 15:00 23:00 07:00 Intake Total 500 ml 60 ml Balance 500 ml 60 ml medications Current Medications Medications Dose Ordered Sig/Humphrey Route Start Time Stop Time Status Last Admin Dose Admin Atorvastatin Calcium 40 mg HS PO 01/31/25 22:00 02/02/25 22:00 40 MG Aspirin 81 mg DAILY PO 02/01/25 10:00 02/03/25 09:52 81 MG Levothyroxine Sodium 50 mcg QAM@0600 PO 02/01/25 06:00 02/03/25 05:56 50 MCG Apixaban 5 mg BID PO 02/02/25 22:00 02/03/25 09:51 5 MG Examination: GENERAL:Normal, LUNGS:Normal, CVS:Normal, NEURO:Normal laboratory and microbiology Laboratory Tests 02/03/25 06:25 Test 02/03/25 06:25 Range/Units Serum Glucose 101 74-106 mg/dL Problem List/Assessment/Plan Problem List/Assessment/Plan Sick sinus syndrome s/p permanent pacemaker implantation (Biotronik) Atrial fibrillation, newly diagnosed Hypertensive urgency Rule out structural heart disease Transient ischemic attack Right carotid stenosis Hypothyroidism Morbid obesity Medical noncompliance Plan/Recommendations (Dr. Gorman): Case discussed with . We will proceed with obtaining a transthoracic echocardiogram to evaluate cardiac function. Patient noted to have atrial fibrillation, this is a new onset per patient. [id number] score: 3 points, HAS- BLED: 1 point. Continue therapeutic Lovenox (transition to DOAC prior discharge), hold antiarrhythmic agent given unknown duration of arrhythmia. Initiate beta-sarita for rate control. Slow ventricular rate reaching as low as 35bpm on ekg monitor tech. Patient also noted to have episodic periods of tachycardia. Given sick sinus syndrome syndrome with syncopal episodes, the patient underwent a permanent pacemaker implantation on 02/02/2025. Interrogation was done on 02/03/2025 which reveals no abnormalities. Pacemaker follow up appointments have been scheduled for 02/10/2025 at 1:00 p.m., 02/14/2025 at 3:30 p.m. and 02/24/2025 at 9:45 a.m in the outpatient cardiology clinic with . Patient was also found to have a high-grade stenosis of the right carotid terminus. The patient was offered a carotid angiogram which initially he refused. Procedure discussed with the patient full detail including risks and benefits. After the primary care team went to speak with the patient, the patient is now agreeable to undergo procedure. We will schedule the patient at soonest availability, tentatively on 02/06/2025. Thank you for allowing us to care for this patient. Please call with any questions or concerns. This medical document was created using an electronic medical record system with voice recognition software and computerized dictation system. Although this document has been carefully reviewed, there might still be some phonetic and typographical errors. Occasional wrong-word or ``sound-alike substitutions may have occurred due to the inherent limitations of voice recognition software. These areas are purely typographical due to imperfections of the software programs and do not reflect any compromise in the patient's medical care. Please read the chart carefully and recognize, using context, where these substitutions have occurred. Plan discussed with: Patient Date of Service: Feb 03, 2025 Billing Provider: JATINDER RICKS Common Visit Codes: [id number] INP/OBS CARE(HIGH) JATINDER RICKS Feb 03, 2025 15:15
--- NOTE | 2025-02-03 16:30 | DVHPNRES ---
Progress Note Date Seen: Feb 03, 2025 Resident Creating Document: ERIKA SILVESTRE RESIDENT Has the PT tested + for MRSA If YES, has PT been informed?: No Medical Necessity Reason Pt with a Central, PICC or Fol: No Subjective Review of Systems Mr. Mosqueda is a 64-year-old male with prior medical history of hypertension, hypothyroidism, prediabetes, and medication noncompliance, who presents today with chief complaint of syncope. The patient states he has had 2 syncopal episodes since Thursday. He refers that on Thursday he was utilizing the bathroom when he lost consciousness stating he woke up on the ground approximately 10 seconds later. The following day he had another episode where he woke up on the ground on this occasion had weakness of the left leg, which would resolve on its own. He went to see his PCP who instructed the patient to go to the emergency department. On evaluation in the ED, the patient was hypertensive with other vital signs within normal range. Initial labs show CBC and chemical panel within normal range, UA was unremarkable. In the ED the patient had sudden onset of left face and arm weakness and numbness associated with word slurring. Twelve lead EKG showed atrial fibrillation. Head CT was done showing no evidence of an acute intracranial abnormality. patient was evaluated by tele neuro who recommended CT angio of the head and neck which showed no acute CT abnormality of the major head and neck arterial vasculature, high-grade stenosis at the right carotid terminus. The patient was started on therapeutic Lovenox, aspirin, and Lipitor. Cardiovascular: HTN Endocrine: Hypothyroidism, Other (Prediabetes) Past Surgical History: Other (Back surgery) Family History: Cancer (Small-cell lung cancer in mother, father, and brother), Hypertension (Father), Other (Sister: BPD and schizophrenia) Smoke: No ALCOHOL: none Drugs: None Lives: with Family Domestic Violence: Neg ROS: 02/01/2025: Patient was seen and examined by me at the bedside. Patient reports feeling better and he has normal power and strength. Neurology is on board. We will continue anticoagulation with the aspirin 81 mg p.o., atorvastatin 40 mg HS and enoxaparin therapeutic dose. Vascular surgery consultation place, pending 02/02/2025: Patient was seen and examined by me at the bedside. Patient reports feeling all right and has normal power and strength. the surgery on board suggested aspirin and Plavix and to control comorbidities. Cardiology on board and patient underwent successful placement of permanent pacemaker today. A chest x-ray was ordered for evaluation of placement. Impression: Successful placement of permanent pacemaker. Dual-chamber pacing leads in place with adequate capture and sensitivity. No complications 02/03/2025: Patient was seen and examined by me at the bedside. Patient reports feeling better. cardiology has been following up and suggested " Pacemaker follow up appointments have been scheduled for 02/10/2025 at 1:00 p.m., 02/14/2025 at 3:30 p.m. and 02/24/2025 at 9:45 a.m in the outpatient cardiology clinic with . Patient was also found to have a high-grade stenosis of the right carotid terminus. The patient was offered a carotid angiogram which initially he refused. Procedure discussed with the patient full detail including risks and benefits. After the primary care team went to speak with the patient, the patient is now agreeable to undergo procedure. We will schedule the patient at soonest availability, tentatively on 02/06/2025." Eliquis will be stopped over the weekend as per Cardiology Objective vital signs Vital Sign Date Time Temp Pulse Resp B/P (MAP) Pulse Ox O2 Delivery O2 Flow Rate FiO2 02/03/25 13:00 98.2 84 20 147/104 (118) 95 98.2 02/02/25 20:00 Room Air* 0 21 Total Intake and Output 02/02/25 02/02/25 02/03/25 15:00 23:00 07:00 Intake Total 500 ml 60 ml Balance 500 ml 60 ml medications Current Medications Medications Dose Ordered Sig/Humphrey Route Start Time Stop Time Status Last Admin Dose Admin Atorvastatin Calcium 40 mg HS PO 01/31/25 22:00 02/02/25 22:00 40 MG Aspirin 81 mg DAILY PO 02/01/25 10:00 02/03/25 09:52 81 MG Levothyroxine Sodium 50 mcg QAM@0600 PO 02/01/25 06:00 02/03/25 05:56 50 MCG Enoxaparin Sodium 100 mg Q12HR SC 02/04/25 10:00 Metoprolol Tartrate 25 mg BID PO 02/03/25 22:00 Examination General: The patient alert and oriented in person place and time. Patient following commands HEENT: Normocephalic, atraumatic, normal reactive pupils, EOM intact, pink conjunctiva, pink moist mucous membrane Respiratory/pulmonary: Bilateral chest expansion, no pain on palpation of chest wall, clear lungs bilaterally, vesicular murmurs present in almost all lung barfield, no associated crackles or wheezes. Cardiovascular: At the time of examination Normal RRR, normal S1 and S2, no murmurs Abdomen: Abdomen nondistended, normal bowel sounds, soft, there is no pain to palpation in any of the abdominal quadrants, no palpable masses. Extremities: No deformities, there is no peripheral edema present at the lower extremities, normal pulses Skin: No rashes or pruritus, there is no sacral edema present at this time. Neurological: Intact cranial nerves with no focal neurologic deficits, sensation intact bilateral upper extremities and lower extremities, strength 5/5 right upper and lower extremity, strength 5/5 left upper and lower extremity. laboratory and microbiology Laboratory Tests 02/03/25 06:25 Test 02/03/25 06:25 Range/Units Serum Glucose 101 74-106 mg/dL Labs and/or images reviewed: Labs reviewed by me, Image(s) reviewed by me Problem List/Assessment/Plan Problem List/Assessment/Plan #Transient ischemic attack - Head CT: no CT evidence of an acute intracranial abnormality. - Carotid Doppler: No hemodynamically significant cervical stenosis - Head/ neck CT angio: No acute CTA abnormality of the major head and neck arterial vasculature, high-grade stenosis at the right carotid terminus - Aspirin 325 mg p.o. once - Atorvastatin 40 mg p.o. HS - Echocardiogram , pending reading - ABCD2: 4 - Neurology on board, suggested NOT IV Thrombolysis or IA Intervention candidate. Target SBP less than 220, DBP less than 120; Statin goal of LDL less than 70; permissive hypertension; 'R carotid terminus high grade stenosis on CTA however US carotids (may be too distal for US to meat pickler) normal - will need non-acute vascular surgery consultation to review for possible repeat CTA and consideration of intervention with CEA vs stent in 2 days to 2 weeks, however stroke may be related to afib' -vascular surgery consult suggested aspirin and Plavix to be continued and to control comorbidities #Right Carotid Stenosis - Head/Neck CT Angio: High grade stenosis at the right carotid terminus - Cardiology has been consulted #Sick sinus syndrome #Rule out structural heart disease #Second-degree AV block #Paroxysmal Atrial Fibrillation (chads Vasc 2), newly diagnosed - EKG: Atrial fibrillation - Enoxaparin 90 mg (1 mg/kg) q12 hours SC - Cardiology on board and patient underwent successful placement of permanent pacemaker today. - A chest x-ray was ordered for evaluation of placement. Impression: Successful placement of permanent pacemaker. Dual-chamber pacing leads in place with adequate capture and sensitivity. No complications -The pacemaker device placedis an Amvia edge DRT-T by [email or web address]. Reference number is [id number] serial number [id number] The atrial lead is a Biotronik S 53 and the ventricular lead is a Biotronik S 60. Atrial lead serial number [id number] with a threshold of three mV P waves at 0.4 milliseconds and 625 Ohms of impedance The ventricular lead is a Biotronik S 60 serial number [id number]. R-wave of seven with 0.8 volts at 0.4 milliseconds and 840 Ohms of impedance. Pacing parameters are at a DDDR mode at a rate of 60/130. Av delay of 200 milliseconds a post ventricular refractory period of 275 milliseconds we will be RA sensitivity at 0.5 mV with a maximum RV sensitivity auto at 2 mV RA/RV output 3.5 volts at 0.4 milliseconds. - cardiology on board suggested on 02/03: Pacemaker follow up appointments have been scheduled for 02/10/2025 at 1:00 p.m., 02/14/2025 at 3:30 p.m. and 02/24/2025 at 9:45 a.m in the outpatient cardiology clinic with . Patient was also found to have a high-grade stenosis of the right carotid terminus. The patient was offered a carotid angiogram which initially he refused. Procedure discussed with the patient full detail including risks and benefits. After the primary care team went to speak with the patient, the patient is now agreeable to undergo procedure. We will schedule the patient at soonest availability, tentatively on 02/06/2025. #Hypothyroidism - TSH: 16.44, FT4: 0.91, Total T3: 1.41 - Levothyroxine 50 mcg PO qAM #Hypertensive Urgency - Monitor BP #Prediabetes , HbA1c 5.5 - I have counseled the patient on healthy lifestyle habits #Medication noncompliance - I have counseled the patient on the importance of maintaining medication adherence for ample control of his health. #Morbid obesity, bmi 28.8 -pt counselled on need of exercise and diet as well as lifestyle modification as well as need of weight loss Diet: Cardiac DVT prophylaxis: Patient is on therapeutic dose of enoxaparin GI prophylaxis: Not indicated Case discussed with Dr. Obrien Plan discussed with: Patient Date of Service: Feb 03, 2025 Billing Provider: TYRONE OBRIEN MD Common Visit Codes: [id number] INP/OBS CARE(HIGH) ERIKA SILVESTRE RESIDENT Feb 03, 2025 16:29 TYRONE OBRIEN MD Feb 03, 2025 19:14
[2025-02-03] MEDS: METOPROLOL TARTRATE 25 MG TAB PO SCH (22:34)
[2025-02-04] VITALS (7 sets, daily range): BP systolic 119–182; BP diastolic 77–96; PULSE 75–100; RESP 14–19; TEMP 96.6–99; O2SAT 95–98
[2025-02-04 07:50] LABS: Hematocrit 46.0 % (41.0-53.0); Hemoglobin 15.9 g/dL (13.5-17.5); Mean Corpuscular Hemoglobin 30.3 pg (28.0-32.0); Mean Corpuscular Volume 87.7 fL (80.0-100.0); Nucleated Red Blood Cells % 0.1 %
[2025-02-04 07:53] LABS: Anion Gap 12 (5-15); Calcium 8.9 mg/dL (8.7-10.4); Carbon Dioxide 22 mmol/L (20-31); Chloride 104 mmol/L (98-107); Potassium 4.1 mmol/L (3.5-5.1); Sodium 138 mmol/L (136-145)
[2025-02-04 07:57] LABS: Glucose 90 mg/dL (74-106)
[2025-02-04 07:59] LABS: BUN/Creatinine Ratio 11.7 (10.0-20.0); Blood Urea Nitrogen 14 mg/dL (9-23)
--- NOTE | 2025-02-04 09:37 | DVHPNRES ---
Progress Note Date Seen: Feb 04, 2025 Resident Creating Document: ERIKA SILVESTRE RESIDENT Has the PT tested + for MRSA If YES, has PT been informed?: No Medical Necessity Reason Pt with a Central, PICC or Fol: No Subjective Review of Systems Mr. Mosqueda is a 64-year-old male with prior medical history of hypertension, hypothyroidism, prediabetes, and medication noncompliance, who presents today with chief complaint of syncope. The patient states he has had 2 syncopal episodes since Thursday. He refers that on Thursday he was utilizing the bathroom when he lost consciousness stating he woke up on the ground approximately 10 seconds later. The following day he had another episode where he woke up on the ground on this occasion had weakness of the left leg, which would resolve on its own. He went to see his PCP who instructed the patient to go to the emergency department. On evaluation in the ED, the patient was hypertensive with other vital signs within normal range. Initial labs show CBC and chemical panel within normal range, UA was unremarkable. In the ED the patient had sudden onset of left face and arm weakness and numbness associated with word slurring. Twelve lead EKG showed atrial fibrillation. Head CT was done showing no evidence of an acute intracranial abnormality. patient was evaluated by tele neuro who recommended CT angio of the head and neck which showed no acute CT abnormality of the major head and neck arterial vasculature, high-grade stenosis at the right carotid terminus. The patient was started on therapeutic Lovenox, aspirin, and Lipitor. Cardiovascular: HTN Endocrine: Hypothyroidism, Other (Prediabetes) Past Surgical History: Other (Back surgery) Family History: Cancer (Small-cell lung cancer in mother, father, and brother), Hypertension (Father), Other (Sister: BPD and schizophrenia) Smoke: No ALCOHOL: none Drugs: None Lives: with Family Domestic Violence: Neg ROS: 02/01/2025: Patient was seen and examined by me at the bedside. Patient reports feeling better and he has normal power and strength. Neurology is on board. We will continue anticoagulation with the aspirin 81 mg p.o., atorvastatin 40 mg HS and enoxaparin therapeutic dose. Vascular surgery consultation place, pending 02/02/2025: Patient was seen and examined by me at the bedside. Patient reports feeling all right and has normal power and strength. the surgery on board suggested aspirin and Plavix and to control comorbidities. Cardiology on board and patient underwent successful placement of permanent pacemaker today. A chest x-ray was ordered for evaluation of placement. Impression: Successful placement of permanent pacemaker. Dual-chamber pacing leads in place with adequate capture and sensitivity. No complications 02/03/2025: Patient was seen and examined by me at the bedside. Patient reports feeling better. cardiology has been following up and suggested " Pacemaker follow up appointments have been scheduled for 02/10/2025 at 1:00 p.m., 02/14/2025 at 3:30 p.m. and 02/24/2025 at 9:45 a.m in the outpatient cardiology clinic with . Patient was also found to have a high-grade stenosis of the right carotid terminus. The patient was offered a carotid angiogram which initially he refused. Procedure discussed with the patient full detail including risks and benefits. After the primary care team went to speak with the patient, the patient is now agreeable to undergo procedure. We will schedule the patient at soonest availability, tentatively on 02/06/2025." 02/04/25: Patient was seen and examined by me at the bedside. Cardiology let us know that due to unavailability of one of the cath labs, pts appointment for carotid angio would have to be shifted to thursday02/08/2025. Pt counselled regarding it and after a lengthy discussion of the benefit of getting the procedure done due to his carotid stenosis, patient agreed to stay. He complains of pain in the surgical incision site and norco 5/325q4 has been scheduled. He has no sob,dizziness, chest pain or any other symptoms today morning or overnight. We will continue to monitor him and wait for cardiology intervention on thursday. Objective vital signs Vital Sign Date Time Temp Pulse Resp B/P (MAP) Pulse Ox O2 Delivery O2 Flow Rate FiO2 02/04/25 01:00 96.6 76 14 182/77 (112) 96 96.6 02/03/25 20:00 Room Air* 0 21 Total Intake and Output 02/03/25 02/03/25 02/04/25 15:00 23:00 07:00 Intake Total 800 ml 200 ml Balance 800 ml 200 ml medications Current Medications Medications Dose Ordered Sig/Humphery Route Start Time Stop Time Status Last Admin Dose Admin Atorvastatin Calcium 40 mg HS PO 01/31/25 22:00 02/03/25 22:33 40 MG Aspirin 81 mg DAILY PO 02/01/25 10:00 02/03/25 09:52 81 MG Levothyroxine Sodium 50 mcg QAM@0600 PO 02/01/25 06:00 02/04/25 05:17 50 MCG Enoxaparin Sodium 100 mg Q12HR SC 02/04/25 10:00 Metoprolol Tartrate 25 mg BID PO 02/03/25 22:00 02/03/25 22:34 25 MG Acetaminophen/ Hydrocodone Bitart 1 tab Q4HPRN PRN PO 02/04/25 09:15 UNV Examination pt is lying down in bed General: The patient alert and oriented in person place and time. Patient following commands, slightly anxious HEENT: Normocephalic, atraumatic, normal reactive pupils, EOM intact, pink conjunctiva, pink moist mucous membrane Respiratory/pulmonary: Bilateral chest expansion, no pain on palpation of chest wall, clear lungs bilaterally, vesicular murmurs present in almost all lung barfield, no associated crackles or wheezes. Cardiovascular: At the time of examination Normal RRR, normal S1 and S2, no murmurs Abdomen: Abdomen nondistended, normal bowel sounds, soft, there is no pain to palpation in any of the abdominal quadrants, no palpable masses. Extremities: No deformities, there is no peripheral edema present at the lower extremities, normal pulses Skin: No rashes or pruritus, there is no sacral edema present at this time, bandage with no soakage at surgical site where pacemaker kept, slightly tender on touch Neurological: Intact cranial nerves with no focal neurologic deficits, sensation intact bilateral upper extremities and lower extremities, strength 5/5 right upper and lower extremity, strength 5/5 left upper and lower extremity. laboratory and microbiology Laboratory Tests 02/04/25 06:27 Test 02/04/25 06:27 Range/Units Serum Glucose 90 74-106 mg/dL Labs and/or images reviewed: Labs reviewed by me, Image(s) reviewed by me Problem List/Assessment/Plan Problem List/Assessment/Plan #Transient ischemic attack - Head CT: no CT evidence of an acute intracranial abnormality. - Carotid Doppler: No hemodynamically significant cervical stenosis - Head/ neck CT angio: No acute CTA abnormality of the major head and neck arterial vasculature, high-grade stenosis at the right carotid terminus - Aspirin 325 mg p.o. once - Atorvastatin 40 mg p.o. HS - Echocardiogram , pending reading - ABCD2: 4 - Neurology on board, suggested NOT IV Thrombolysis or IA Intervention candidate. Target SBP less than 220, DBP less than 120; Statin goal of LDL less than 70; permissive hypertension; 'R carotid terminus high grade stenosis on CTA however US carotids (may be too distal for US to pickle pumper) normal - will need non-acute vascular surgery consultation to review for possible repeat CTA and consideration of intervention with CEA vs stent in 2 days to 2 weeks, however stroke may be related to afib' -vascular surgery consult suggested aspirin and Plavix to be continued and to control comorbidities #Right Carotid Stenosis - Head/Neck CT Angio: High grade stenosis at the right carotid terminus - Cardiology has been consulted #Sick sinus syndrome #Rule out structural heart disease #Second-degree AV block #Paroxysmal Atrial Fibrillation (chads Vasc 2), newly diagnosed - EKG: Atrial fibrillation - Enoxaparin 90 mg (1 mg/kg) q12 hours SC - Cardiology on board and patient underwent successful placement of permanent pacemaker today. - A chest x-ray was ordered for evaluation of placement. Impression: Successful placement of permanent pacemaker. Dual-chamber pacing leads in place with adequate capture and sensitivity. No complications -The pacemaker device placedis an Amvia edge DRT-T by [employer]. Reference number is [id number] serial number [id number] The atrial lead is a Biotronik S 53 and the ventricular lead is a Biotronik S 60. Atrial lead serial number [id number] with a threshold of three mV P waves at 0.4 milliseconds and 625 Ohms of impedance The ventricular lead is a Biotronik S 60 serial number [id number]. R-wave of seven with 0.8 volts at 0.4 milliseconds and 840 Ohms of impedance. Pacing parameters are at a DDDR mode at a rate of 60/130. Av delay of 200 milliseconds a post ventricular refractory period of 275 milliseconds we will be RA sensitivity at 0.5 mV with a maximum RV sensitivity auto at 2 mV RA/RV output 3.5 volts at 0.4 milliseconds. - cardiology on board suggested on 02/03: Pacemaker follow up appointments have been scheduled for 02/10/2025 at 1:00 p.m., 02/14/2025 at 3:30 p.m. and 02/24/2025 at 9:45 a.m in the outpatient cardiology clinic with . Patient was also found to have a high-grade stenosis of the right carotid terminus. The patient was offered a carotid angiogram which initially he refused. Procedure discussed with the patient full detail including risks and benefits. After the primary care team went to speak with the patient, the patient is now agreeable to undergo procedure. We will schedule the patient at soonest availability, tentatively on 02/06/2025. -cardiology consult on 02/04 stated carotid angio scheduled on 02/08/2025 #Hypothyroidism - TSH: 16.44, FT4: 0.91, Total T3: 1.41 - Levothyroxine 50 mcg PO qAM #Hypertensive Urgency - Monitor BP #Prediabetes , HbA1c 5.5 - I have counseled the patient on healthy lifestyle habits #Medication noncompliance - I have counseled the patient on the importance of maintaining medication adherence for ample control of his health. #Morbid obesity, bmi 28.8 -pt counselled on need of exercise and diet as well as lifestyle modification as well as need of weight loss Diet: Cardiac DVT prophylaxis: Patient is on therapeutic dose of enoxaparin GI prophylaxis: Not indicated Case discussed with Dr. Obrien Plan discussed with: Patient My Orders My Orders Orders - ERIKA SILVESTRE Procedure Category Date Status Time Hydrocodone-Acet PHA 02/04/25 Logged 5/325mg Tab ([place] 09:15 ERIKA SILVESTRE RESIDENT Feb 04, 2025 09:37
[2025-02-04] MEDS: ENOXAPARIN SOD 100 MG/1 ML SYRINGE SC SCH (10:15)
--- NOTE | 2025-02-04 13:32 | DVHPNRES ---
Progress Note Date Seen: Feb 04, 2025 Resident Creating Document: ERIKA SILVESTRE RESIDENT Has the PT tested + for MRSA If YES, has PT been informed?: No Medical Necessity Reason Pt with a Central, PICC or Fol: No Subjective Review of Systems Mr. Mosqueda is a 64-year-old male with prior medical history of hypertension, hypothyroidism, prediabetes, and medication noncompliance, who presents today with chief complaint of syncope. The patient states he has had 2 syncopal episodes since Thursday. He refers that on Thursday he was utilizing the bathroom when he lost consciousness stating he woke up on the ground approximately 10 seconds later. The following day he had another episode where he woke up on the ground on this occasion had weakness of the left leg, which would resolve on its own. He went to see his PCP who instructed the patient to go to the emergency department. On evaluation in the ED, the patient was hypertensive with other vital signs within normal range. Initial labs show CBC and chemical panel within normal range, UA was unremarkable. In the ED the patient had sudden onset of left face and arm weakness and numbness associated with word slurring. Twelve lead EKG showed atrial fibrillation. Head CT was done showing no evidence of an acute intracranial abnormality. patient was evaluated by tele neuro who recommended CT angio of the head and neck which showed no acute CT abnormality of the major head and neck arterial vasculature, high-grade stenosis at the right carotid terminus. The patient was started on therapeutic Lovenox, aspirin, and Lipitor. Cardiovascular: HTN Endocrine: Hypothyroidism, Other (Prediabetes) Past Surgical History: Other (Back surgery) Family History: Cancer (Small-cell lung cancer in mother, father, and brother), Hypertension (Father), Other (Sister: BPD and schizophrenia) Smoke: No ALCOHOL: none Drugs: None Lives: with Family Domestic Violence: Neg ROS: 02/01/2025: Patient was seen and examined by me at the bedside. Patient reports feeling better and he has normal power and strength. Neurology is on board. We will continue anticoagulation with the aspirin 81 mg p.o., atorvastatin 40 mg HS and enoxaparin therapeutic dose. Vascular surgery consultation place, pending 02/02/2025: Patient was seen and examined by me at the bedside. Patient reports feeling all right and has normal power and strength. the surgery on board suggested aspirin and Plavix and to control comorbidities. Cardiology on board and patient underwent successful placement of permanent pacemaker today. A chest x-ray was ordered for evaluation of placement. Impression: Successful placement of permanent pacemaker. Dual-chamber pacing leads in place with adequate capture and sensitivity. No complications 02/03/2025: Patient was seen and examined by me at the bedside. Patient reports feeling better. cardiology has been following up and suggested " Pacemaker follow up appointments have been scheduled for 02/10/2025 at 1:00 p.m., 02/14/2025 at 3:30 p.m. and 02/24/2025 at 9:45 a.m in the outpatient cardiology clinic with . Patient was also found to have a high-grade stenosis of the right carotid terminus. The patient was offered a carotid angiogram which initially he refused. Procedure discussed with the patient full detail including risks and benefits. After the primary care team went to speak with the patient, the patient is now agreeable to undergo procedure. We will schedule the patient at soonest availability, tentatively on 02/06/2025." 02/04/25: Patient was seen and examined by me at the bedside. Cardiology let us know that due to unavailability of one of the cath labs, pts appointment for carotid angio would have to be shifted to thursday02/08/2025. Pt counselled regarding it and after a lengthy discussion of the benefit of getting the procedure done due to his carotid stenosis, patient agreed to stay. He complains of pain in the surgical incision site and norco 5/325q4 has been scheduled. He has no sob,dizziness, chest pain or any other symptoms today morning or overnight. We will continue to monitor him and wait for cardiology intervention on thursday. Eliquis will be held until then Objective vital signs Vital Sign Date Time Temp Pulse Resp B/P (MAP) Pulse Ox O2 Delivery O2 Flow Rate FiO2 02/04/25 10:16 75 135/90 02/04/25 09:00 98.1 18 97 98.1 02/03/25 20:00 Room Air* 0 21 Total Intake and Output 02/03/25 02/03/25 02/04/25 15:00 23:00 07:00 Intake Total 800 ml 200 ml Balance 800 ml 200 ml medications Current Medications Medications Dose Ordered Sig/Humphrey Route Start Time Stop Time Status Last Admin Dose Admin Atorvastatin Calcium 40 mg HS PO 01/31/25 22:00 02/03/25 22:33 40 MG Aspirin 81 mg DAILY PO 02/01/25 10:00 02/04/25 10:16 81 MG Levothyroxine Sodium 50 mcg QAM@0600 PO 02/01/25 06:00 02/04/25 05:17 50 MCG Enoxaparin Sodium 100 mg Q12HR SC 02/04/25 10:00 02/04/25 10:15 100 MG Metoprolol Tartrate 25 mg BID PO 02/03/25 22:00 02/04/25 10:16 25 MG Acetaminophen/ Hydrocodone Bitart 1 tab Q4HPRN PRN PO 02/04/25 09:15 Examination Patient is lying in the bed General: The patient alert and oriented in person place and time. Patient following commands HEENT: Normocephalic, atraumatic, normal reactive pupils, EOM intact, pink conjunctiva, pink moist mucous membrane Respiratory/pulmonary: Bilateral chest expansion, no pain on palpation of chest wall, clear lungs bilaterally, vesicular murmurs present in almost all lung barfield, no associated crackles or wheezes. Cardiovascular: At the time of examination Normal RRR, normal S1 and S2, no murmurs Abdomen: Abdomen nondistended, normal bowel sounds, soft, there is no pain to palpation in any of the abdominal quadrants, no palpable masses. Extremities: No deformities, there is no peripheral edema present at the lower extremities, normal pulses Skin: No rashes or pruritus, there is no sacral edema present at this time. Neurological: Intact cranial nerves with no focal neurologic deficits, sensation intact bilateral upper extremities and lower extremities, strength 5/5 right upper and lower extremity, strength 5/5 left upper and lower extremity. laboratory and microbiology Laboratory Tests 02/04/25 06:27 Test 02/04/25 06:27 Range/Units Serum Glucose 90 74-106 mg/dL Labs and/or images reviewed: Labs reviewed by me, Image(s) reviewed by me Problem List/Assessment/Plan Problem List/Assessment/Plan #Transient ischemic attack - Head CT: no CT evidence of an acute intracranial abnormality. - Carotid Doppler: No hemodynamically significant cervical stenosis - Head/ neck CT angio: No acute CTA abnormality of the major head and neck arterial vasculature, high-grade stenosis at the right carotid terminus - Aspirin 325 mg p.o. once - Atorvastatin 40 mg p.o. HS - Echocardiogram , pending reading - ABCD2: 4 - Neurology on board, suggested NOT IV Thrombolysis or IA Intervention candidate. 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) normal - will need non-acute vascular surgery consultation to review for possible repeat CTA and consideration of intervention with CEA vs stent in 2 days to 2 weeks, however stroke may be related to afib' -vascular surgery consult suggested aspirin and Plavix to be continued and to control comorbidities #Right Carotid Stenosis - Head/Neck CT Angio: High grade stenosis at the right carotid terminus - Cardiology has been consulted, carotid angio to be done on 02/08/2025, already scheduled #Sick sinus syndrome #Rule out structural heart disease #Second-degree AV block #Paroxysmal Atrial Fibrillation (chads Vasc 2), newly diagnosed - EKG: Atrial fibrillation - Enoxaparin 90 mg (1 mg/kg) q12 hours SC - Cardiology on board and patient underwent successful placement of permanent pacemaker today. - A chest x-ray was ordered for evaluation of placement. Impression: Successful placement of permanent pacemaker. Dual-chamber pacing leads in place with adequate capture and sensitivity. No complications -The pacemaker device placedis an Amvia edge DRT-T by [employer]. Reference number is [id number] serial number [id number] The atrial lead is a Biotronik S 53 and the ventricular lead is a Biotronik S 60. Atrial lead serial number [id number] with a threshold of three mV P waves at 0.4 milliseconds and 625 Ohms of impedance The ventricular lead is a Biotronik S 60 serial number [id number]. R-wave of seven with 0.8 volts at 0.4 milliseconds and 840 Ohms of impedance. Pacing parameters are at a DDDR mode at a rate of 60/130. Av delay of 200 milliseconds a post ventricular refractory period of 275 milliseconds we will be RA sensitivity at 0.5 mV with a maximum RV sensitivity auto at 2 mV RA/RV output 3.5 volts at 0.4 milliseconds. - cardiology on board suggested on 02/03: Pacemaker follow up appointments have been scheduled for 02/10/2025 at 1:00 p.m., 02/14/2025 at 3:30 p.m. and 02/24/2025 at 9:45 a.m in the outpatient cardiology clinic with . Patient was also found to have a high-grade stenosis of the right carotid terminus. The patient was offered a carotid angiogram which initially he refused. Procedure discussed with the patient full detail including risks and benefits. After the primary care team went to speak with the patient, the patient is now agreeable to undergo procedure. We will schedule the patient at soonest availability, tentatively on 02/06/2025. -carotid angio scheduled for 02/08/2025 -Eliquis on hold #Hypothyroidism - TSH: 16.44, FT4: 0.91, Total T3: 1.41 - Levothyroxine 50 mcg PO qAM #Hypertensive Urgency - Monitor BP #Prediabetes , HbA1c 5.5 - I have counseled the patient on healthy lifestyle habits #Medication noncompliance - I have counseled the patient on the importance of maintaining medication adherence for ample control of his health. #Morbid obesity, bmi 28.8 -pt counselled on need of exercise and diet as well as lifestyle modification as well as need of weight loss Diet: Cardiac DVT prophylaxis: Patient is on therapeutic dose of enoxaparin GI prophylaxis: Not indicated Case discussed with Dr. Obrien Plan discussed with: Patient My Orders My Orders Orders - ERIKA SILVESTRE Procedure Category Date Status Time Hydrocodone-Acet PHA 02/04/25 In Process 5/325mg Tab ([place] 09:15 Date of Service: Feb 04, 2025 Billing Provider: TYRONE OBRIEN MD, SREYA RESIDENT Feb 04, 2025 13:32
--- NOTE | 2025-02-04 17:41 | DVHPN2 ---
Subjective No cardiac events reported Denies chest pain, dizziness or syncope Changes from previous H/P or p: No Changes Objective Vitals Vital Signs Date Time Temp Pulse Resp B/P (MAP) Pulse Ox O2 Delivery O2 Flow Rate FiO2 02/04/25 17:00 99.0 81 18 119/96 (104) 98 99.0 02/03/25 20:00 Room Air* 0 21 Intake/Output Intake and Output 02/04/25 07:00 Intake Total 1000 ml Balance 1000 ml Intake Oral 1000 ml # Voids 8 Medications Current Medications Medications Dose Ordered Sig/Humphrey Route Start Time Stop Time Status Last Admin Dose Admin Atorvastatin Calcium 40 mg HS PO 01/31/25 22:00 02/03/25 22:33 40 MG Aspirin 81 mg DAILY PO 02/01/25 10:00 02/04/25 10:16 81 MG Levothyroxine Sodium 50 mcg QAM@0600 PO 02/01/25 06:00 02/04/25 05:17 50 MCG Enoxaparin Sodium 100 mg Q12HR SC 02/04/25 10:00 02/04/25 10:15 100 MG Metoprolol Tartrate 25 mg BID PO 02/03/25 22:00 02/04/25 10:16 25 MG Acetaminophen/ Hydrocodone Bitart 1 tab Q4HPRN PRN PO 02/04/25 09:15 Laboratory Results Laboratory Tests 02/04/25 06:27 Chemistry Test 02/04/25 06:27 Calcium Level 8.9 mg/dL (8.7-10.4) Urinalysis Test 01/31/25 18:40 Urine Color Yellow (Yellow) Urine Clarity Clear (Clear) Urine pH 8.0 (5.0-9.0) Urine Specific [place] 1.023 (1.001-1.035) Urine Protein 1+ (Negative) H Urine Ketones Trace (Negative) Urine Blood Negative /uL (Negative) Urine Nitrite Negative (Negative) Urine Bilirubin Negative (Negative) Urine Urobilinogen Normal mg/dL (Negative) Urine Leukocyte Esterase Negative /uL (Negative) Urine RBC 4 /hpf (0 - 3) Urine Microscopic WBC < 1 /HPF (0-3) Urine Squamous Epithelial Cells None seen /hpf (<5) Urine Bacteria None seen /hpf (None Seen) Urine Glucose Normal mg/dL (Normal) Assessment/Plan Assessment/Plan Sick sinus syndrome s/p permanent pacemaker implantation (Biotronik) Atrial fibrillation, newly diagnosed Hypertensive urgency Rule out structural heart disease Transient ischemic attack Right carotid stenosis Hypothyroidism Morbid obesity Medical noncompliance Plan/Recommendations (Dr. Gorman): 02/04/25 -denies acute symptoms. Tentative schedule for carotid angiogram on 02/08/25. Echo awaiting results. Case discussed with . We will proceed with obtaining a transthoracic echocardiogram to evaluate cardiac function. Patient noted to have atrial fibrillation, this is a new onset per patient. [id number] score: 3 points, HAS- BLED: 1 point. Continue therapeutic Lovenox (transition to DOAC prior discharge), hold antiarrhythmic agent given unknown duration of arrhythmia. Initiate beta-sarita for rate control. 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 Patient also noted to have episodic periods of tachycardia. Given sick sinus syndrome syndrome with syncopal episodes, the patient underwent a permanent pacemaker implantation on 02/02/2025. Interrogation was done on 02/03/2025 which reveals no abnormalities. Pacemaker follow up appointments have been scheduled for 02/10/2025 at 1:00 p.m., 02/14/2025 at 3:30 p.m. and 02/24/2025 at 9:45 a.m in the outpatient cardiology clinic with . Patient was also found to have a high-grade stenosis of the right carotid terminus. The patient was offered a carotid angiogram which initially he refused. Procedure discussed with the patient full detail including risks and benefits. After the primary care team went to speak with the patient, the patient is now agreeable to undergo procedure. We will schedule the patient at soonest availability, tentatively on 02/06/2025. Thank you for allowing us to care for this patient. Please call with any questions or concerns. This medical document was created using an electronic medical record system with voice recognition software and computerized dictation system. Although this document has been carefully reviewed, there might still be some phonetic and typographical errors. Occasional wrong-word or ``sound-alike substitutions may have occurred due to the inherent limitations of voice recognition software. These areas are purely typographical due to imperfections of the software programs and do not reflect any compromise in the patient's medical care. Please read the chart carefully and recognize, using context, where these substitutions have occurred. Plan discussed with: Patient Plan discussed with: Patient Date of Service: Feb 04, 2025 Billing Provider: ERI GORMAN Sr., MD Common Visit Codes: CONSULT ONLY Consultation Codes: 08575-COPURLVCT CONSULT <45MIN GABRIELLE NGUYEN HANDER IN Feb 04, 2025 17:41
[2025-02-04] MEDS: HYDROcodone-ACET 5/325MG TAB PO PRN (19:10)
[2025-02-05] VITALS (9 sets, daily range): BP systolic 111–132; BP diastolic 82–90; PULSE 70–88; RESP 18–19; TEMP 97.4–98.4; O2SAT 94–100
[2025-02-05] MEDS: HYDROcodone-ACET 5/325MG TAB PO ONE (07:00)
[2025-02-05 07:30] LABS: Anion Gap 13 (5-15); Carbon Dioxide 21 mmol/L (20-31); Chloride 105 mmol/L (98-107); Potassium 4.3 mmol/L (3.5-5.1); Sodium 139 mmol/L (136-145)
[2025-02-05 07:31] LABS: Calcium 8.8 mg/dL (8.7-10.4)
[2025-02-05 07:36] LABS: BUN/Creatinine Ratio 14.3 (10.0-20.0); Blood Urea Nitrogen 17 mg/dL (9-23); Glucose 98 mg/dL (74-106)
[2025-02-05 09:25] LABS: Hematocrit 46.1 % (41.0-53.0); Hemoglobin 15.8 g/dL (13.5-17.5); Mean Corpuscular Hemoglobin 30.3 pg (28.0-32.0); Mean Corpuscular Volume 88.4 fL (80.0-100.0); Nucleated Red Blood Cells % 0.2 %
--- NOTE | 2025-02-05 14:20 | DVHPNRES ---
Progress Note Date Seen: Feb 05, 2025 Resident Creating Document: LIAM HINKLE RESIDENT Has the PT tested + for MRSA If YES, has PT been informed?: No Medical Necessity Reason Pt with a Central, PICC or Fol: No Subjective Review of Systems Patient was seen today at bedside. Less than chart reviewed. No acute complaint. We will continue current management. Objective vital signs Vital Sign Date Time Temp Pulse Resp B/P (MAP) Pulse Ox O2 Delivery O2 Flow Rate FiO2 02/05/25 12:39 98.4 82 18 132/82 (99) 95 98.4 02/05/25 08:00 Room Air* 0 21 Total Intake and Output 02/04/25 02/04/25 02/05/25 15:00 23:00 07:00 Intake Total 250 ml 774 ml Output Total 200 ml Balance 50 ml 774 ml medications Current Medications Medications Dose Ordered Sig/Humphrey Route Start Time Stop Time Status Last Admin Dose Admin Atorvastatin Calcium 40 mg HS PO 01/31/25 22:00 02/04/25 22:31 40 MG Aspirin 81 mg DAILY PO 02/01/25 10:00 02/05/25 09:02 81 MG Levothyroxine Sodium 50 mcg QAM@0600 PO 02/01/25 06:00 02/05/25 05:25 50 MCG Enoxaparin Sodium 100 mg Q12HR SC 02/04/25 10:00 02/05/25 09:05 100 MG Metoprolol Tartrate 25 mg BID PO 02/03/25 22:00 02/05/25 09:00 25 MG Acetaminophen/ Hydrocodone Bitart 1 tab Q4HPRN PRN PO 02/04/25 09:15 02/05/25 05:59 1 TAB Examination Patient is lying in the bed General: The patient alert and oriented in person place and time. Patient following commands HEENT: Normocephalic, atraumatic, normal reactive pupils, EOM intact, pink conjunctiva, pink moist mucous membrane Respiratory/pulmonary: Bilateral chest expansion, no pain on palpation of chest wall, clear lungs bilaterally, vesicular murmurs present in almost all lung barfield, no associated crackles or wheezes. Cardiovascular: At the time of examination Normal RRR, normal S1 and S2, no murmurs Abdomen: Abdomen nondistended, normal bowel sounds, soft, there is no pain to palpation in any of the abdominal quadrants, no palpable masses. Extremities: No deformities, there is no peripheral edema present at the lower extremities, normal pulses Skin: No rashes or pruritus, there is no sacral edema present at this time. Neurological: Intact cranial nerves with no focal neurologic deficits, sensation intact bilateral upper extremities and lower extremities, strength 5/5 right upper and lower extremity, strength 5/5 left upper and lower extremity. laboratory and microbiology laboratory and microbiology Laboratory Tests 02/05/25 09:02 02/05/25 06:27 Test 02/05/25 06:27 Range/Units Serum Glucose 98 74-106 mg/dL Problem List/Assessment/Plan Problem List/Assessment/Plan #Transient ischemic attack - Head CT: no CT evidence of an acute intracranial abnormality. - Carotid Doppler: No hemodynamically significant cervical stenosis - Head/ neck CT angio: No acute CTA abnormality of the major head and neck arterial vasculature, high-grade stenosis at the right carotid terminus - Aspirin 325 mg p.o. once - Atorvastatin 40 mg p.o. HS - Echocardiogram , pending reading - ABCD2: 4 - Neurology on board, suggested NOT IV Thrombolysis or IA Intervention candidate. 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) normal - will need non-acute vascular surgery consultation to review for possible repeat CTA and consideration of intervention with CEA vs stent in 2 days to 2 weeks, however stroke may be related to afib' -vascular surgery consult suggested aspirin and Plavix to be continued and to control comorbidities #Right Carotid Stenosis - Head/Neck CT Angio: High grade stenosis at the right carotid terminus - Cardiology has been consulted, carotid angio to be done on 02/08/2025, already scheduled #Sick sinus syndrome #Rule out structural heart disease #Second-degree AV block #Paroxysmal Atrial Fibrillation (chads Vasc 2), newly diagnosed - EKG: Atrial fibrillation - Enoxaparin 90 mg (1 mg/kg) q12 hours SC - Cardiology on board and patient underwent successful placement of permanent pacemaker today. - A chest x-ray was ordered for evaluation of placement. Impression: Successful placement of permanent pacemaker. Dual-chamber pacing leads in place with adequate capture and sensitivity. No complications -The pacemaker device placedis an Amvia edge DRT-T by [employer]. Reference number is [id number] serial number [id number] The atrial lead is a Biotronik S 53 and the ventricular lead is a Biotronik S 60. Atrial lead serial number [id number] with a threshold of three mV P waves at 0.4 milliseconds and 625 Ohms of impedance The ventricular lead is a Bi[employer]ronik S 60 serial number [id number]. R-wave of seven with 0.8 volts at 0.4 milliseconds and 840 Ohms of impedance. Pacing parameters are at a DDDR mode at a rate of 60/130. Av delay of 200 milliseconds a post ventricular refractory period of 275 milliseconds we will be RA sensitivity at 0.5 mV with a maximum RV sensitivity auto at 2 mV RA/RV output 3.5 volts at 0.4 milliseconds. - cardiology on board suggested on 02/03: Pacemaker follow up appointments have been scheduled for 02/10/2025 at 1:00 p.m., 02/14/2025 at 3:30 p.m. and 02/24/2025 at 9:45 a.m in the outpatient cardiology clinic with . Patient was also found to have a high-grade stenosis of the right carotid terminus. The patient was offered a carotid angiogram which initially he refused. Procedure discussed with the patient full detail including risks and benefits. After the primary care team went to speak with the patient, the patient is now agreeable to undergo procedure. We will schedule the patient at soonest availability, tentatively on 02/06/2025. -carotid angio scheduled for 02/08/2025 -Tree on hold #Hypothyroidism - TSH: 16.44, FT4: 0.91, Total T3: 1.41 - Levothyroxine 50 mcg PO qAM #Hypertensive Urgency - Monitor BP #Prediabetes , HbA1c 5.5 - I have counseled the patient on healthy lifestyle habits #Medication noncompliance - I have counseled the patient on the importance of maintaining medication adherence for ample control of his health. #Morbid obesity, bmi 28.8 -pt counselled on need of exercise and diet as well as lifestyle modification as well as need of weight loss Diet: Cardiac DVT prophylaxis: Patient is on therapeutic dose of enoxaparin GI prophylaxis: Not indicated Case discussed with Dr. Mason Plan discussed with: Patient Plan discussed with: Patient, Other (RN) Date of Service: Feb 05, 2025 Billing Provider: TYRONE MASON MD, [facility] Feb 05, 2025 14:20
[2025-02-06] VITALS (7 sets, daily range): BP systolic 106–135; BP diastolic 80–101; PULSE 70–98; RESP 15–18; TEMP 96.8–98.6; O2SAT 94–100
[2025-02-06 06:55] LABS: Hematocrit 44.6 % (41.0-53.0); Hemoglobin 15.7 g/dL (13.5-17.5); Mean Corpuscular Hemoglobin 30.4 pg (28.0-32.0); Mean Corpuscular Volume 86.2 fL (80.0-100.0); Nucleated Red Blood Cells % 0.1 %
[2025-02-06 07:09] LABS: Alanine Aminotransferase 38 U/L (7-40); Alkaline Phosphatase 84 U/L (46-116); BUN/Creatinine Ratio 13.8 (10.0-20.0); Blood Urea Nitrogen 16 mg/dL (9-23); Chloride 106 mmol/L (98-107); Glucose 90 mg/dL (74-106); Magnesium 2.1 mg/dL (1.6-2.6); Potassium 4.2 mmol/L (3.5-5.1); Sodium 139 mmol/L (136-145); Total Protein 6.8 g/dL (5.7-8.2)
[2025-02-06 07:10] LABS: Albumin 4.0 g/dL (3.2-4.8); Bilirubin, Total 0.9 mg/dL (0.2-1.0)
[2025-02-06 07:11] LABS: Anion Gap 10 (5-15); Carbon Dioxide 23 mmol/L (20-31)
[2025-02-06 07:18] LABS: Calcium 8.7 mg/dL (8.7-10.4)
[2025-02-06] MEDS ORDERED: hydrALAZINE HCL 20 MG/ML VL IV PRN (09:45)
--- NOTE | 2025-02-06 11:11 | DVHPN2 ---
Consult Progress Note Subjective Other Systems: Patient in paced rhythm on nurse monitoring at time of assessment Denies any cardiac symptoms Objective vital signs Vital Sign Date Time Temp Pulse Resp B/P (MAP) Pulse Ox O2 Delivery O2 Flow Rate FiO2 02/06/25 10: 77 135/101 02/06/25 09:00 98.6 18 95 98.6 02/06/25 08:00 Room Air* 0 21 Total Intake and Output 02/05/25 02/05/25 02/06/25 15:00 23:00 07:00 Intake Total 980 ml 240 ml Balance 980 ml 240 ml medications Current Medications Medications Dose Ordered Sig/Humphrey Route Start Time Stop Time Status Last Admin Dose Admin Atorvastatin Calcium 40 mg HS PO 01/31/25 22:00 02/05/25 21:24 40 MG Aspirin 81 mg DAILY PO 02/01/25 10:00 02/06/25 10:26 81 MG Levothyroxine Sodium 50 mcg QAM@0600 PO 02/01/25 06:00 02/06/25 05:31 50 MCG Enoxaparin Sodium 100 mg Q12HR SC 02/04/25 10:00 02/06/25 10:26 100 MG Metoprolol Tartrate 25 mg BID PO 02/03/25 22:00 02/06/25 10:26 25 MG Acetaminophen/ Hydrocodone Bitart 1 tab Q4HPRN PRN PO 02/04/25 09:15 02/05/25 21:25 1 TAB Hydralazine HCl 10 mg Q6HP PRN IV 02/06/25 09:45 UNV Examination: GENERAL:Normal, LUNGS:Normal, CVS:Normal, NEURO:Normal laboratory and microbiology Laboratory Tests 02/06/25 05:45 Test 02/06/25 05:45 Range/Units Serum Glucose 90 74-106 mg/dL Problem List/Assessment/Plan Problem List/Assessment/Plan Sick sinus syndrome s/p permanent pacemaker implantation (Biotronik) Atrial fibrillation, newly diagnosed Hypertensive urgency Rule out structural heart disease Transient ischemic attack Right carotid stenosis Hypothyroidism Morbid obesity Medical noncompliance Plan/Recommendations (Dr. Gorman): Case discussed with . We will proceed with obtaining a transthoracic echocardiogram to evaluate cardiac function. Patient noted to have atrial fibrillation, this is a new onset per patient. [id number] score: 3 points, HAS- BLED: 1 point. Continue therapeutic Lovenox (transition to DOAC prior discharge), hold antiarrhythmic agent given unknown duration of arrhythmia. Initiate beta-sarita for rate control. Slow ventricular rate reaching as low as 35bpm on nurse monitoring. Patient also noted to have episodic periods of tachycardia. Given sick sinus syndrome syndrome with syncopal episodes, the patient underwent a permanent pacemaker implantation on 02/02/2025. Interrogation was done on 02/03/2025 which reveals no abnormalities. Pacemaker follow up appointments have been scheduled for 02/10/2025 at 1:00 p.m., 02/14/2025 at 3:30 p.m. and 02/24/2025 at 9:45 a.m in the outpatient cardiology clinic with . Patient was also found to have a high-grade stenosis of the right carotid terminus. The patient was offered a carotid angiogram which initially he refused. Procedure discussed with the patient full detail including risks and benefits. After the primary care team went to speak with the patient, the patient is now agreeable to undergo procedure. We will schedule the patient at soonest availability, tentatively on 02/08/2025. Thank you for allowing us to care for this patient. Please call with any questions or concerns. This medical document was created using an electronic medical record system with voice recognition software and computerized dictation system. Although this document has been carefully reviewed, there might still be some phonetic and typographical errors. Occasional wrong-word or ``sound-alike substitutions may have occurred due to the inherent limitations of voice recognition software. These areas are purely typographical due to imperfections of the software programs and do not reflect any compromise in the patient's medical care. Please read the chart carefully and recognize, using context, where these substitutions have occurred. Plan discussed with: Patient Date of Service: Feb 06, 2025 Billing Provider: JATINDER RICKS Common Visit Codes: [id number] INP/OBS CARE(HIGH) JATINDER RICKS Feb 06, 2025 11:11
--- NOTE | 2025-02-06 13:18 | DVHPNRES ---
Progress Note Date Seen: Feb 06, 2025 Resident Creating Document: ERIKA SILVESTRE RESIDENT Has the PT tested + for MRSA If YES, has PT been informed?: No Medical Necessity Reason Pt with a Central, PICC or Fol: No Subjective Review of Systems Mr. Mosqueda is a 64-year-old male with prior medical history of hypertension, hypothyroidism, prediabetes, and medication noncompliance, who presents today with chief complaint of syncope. The patient states he has had 2 syncopal episodes since Thursday. He refers that on Thursday he was utilizing the bathroom when he lost consciousness stating he woke up on the ground approximately 10 seconds later. The following day he had another episode where he woke up on the ground on this occasion had weakness of the left leg, which would resolve on its own. He went to see his PCP who instructed the patient to go to the emergency department. On evaluation in the ED, the patient was hypertensive with other vital signs within normal range. Initial labs show CBC and chemical panel within normal range, UA was unremarkable. In the ED the patient had sudden onset of left face and arm weakness and numbness associated with word slurring. Twelve lead EKG showed atrial fibrillation. Head CT was done showing no evidence of an acute intracranial abnormality. patient was evaluated by tele neuro who recommended CT angio of the head and neck which showed no acute CT abnormality of the major head and neck arterial vasculature, high-grade stenosis at the right carotid terminus. The patient was started on therapeutic Lovenox, aspirin, and Lipitor. Cardiovascular: HTN Endocrine: Hypothyroidism, Other (Prediabetes) Past Surgical History: Other (Back surgery) Family History: Cancer (Small-cell lung cancer in mother, father, and brother), Hypertension (Father), Other (Sister: BPD and schizophrenia) Smoke: No ALCOHOL: none Drugs: None Lives: with Family Domestic Violence: Neg ROS: 02/01/2025: Patient was seen and examined by me at the bedside. Patient reports feeling better and he has normal power and strength. Neurology is on board. We will continue anticoagulation with the aspirin 81 mg p.o., atorvastatin 40 mg HS and enoxaparin therapeutic dose. Vascular surgery consultation place, pending 02/02/2025: Patient was seen and examined by me at the bedside. Patient reports feeling all right and has normal power and strength. the surgery on board suggested aspirin and Plavix and to control comorbidities. Cardiology on board and patient underwent successful placement of permanent pacemaker today. A chest x-ray was ordered for evaluation of placement. Impression: Successful placement of permanent pacemaker. Dual-chamber pacing leads in place with adequate capture and sensitivity. No complications 02/03/2025: Patient was seen and examined by me at the bedside. Patient reports feeling better. cardiology has been following up and suggested " Pacemaker follow up appointments have been scheduled for 02/10/2025 at 1:00 p.m., 02/14/2025 at 3:30 p.m. and 02/24/2025 at 9:45 a.m in the outpatient cardiology clinic with . Patient was also found to have a high-grade stenosis of the right carotid terminus. The patient was offered a carotid angiogram which initially he refused. Procedure discussed with the patient full detail including risks and benefits. After the primary care team went to speak with the patient, the patient is now agreeable to undergo procedure. We will schedule the patient at soonest availability, tentatively on 02/06/2025." Eliquis will be stopped over the weekend as per Cardiology 02/04/25: Patient was seen and examined by me at the bedside. Cardiology let us know that due to unavailability of one of the cath labs, pts appointment for carotid angio would have to be shifted to thursday02/08/2025. Pt counselled regarding it and after a lengthy discussion of the benefit of getting the procedure done due to his carotid stenosis, patient agreed to stay. He complains of pain in the surgical incision site and norco 5/325q4 has been scheduled. He has no sob,dizziness, chest pain or any other symptoms today morning or overnight. We will continue to monitor him and wait for cardiology intervention on thursday. Eliquis will be held until then 02/05/25 Patient was seen today at bedside. Less than chart reviewed. No acute complaint. We will continue current management. 02/06/2025 patient was seen and examined by me today. Patient has no new complaints. We will continue current management. DNR status has been changed to full code today. Objective vital signs Vital Sign Date Time Temp Pulse Resp B/P (MAP) Pulse Ox O2 Delivery O2 Flow Rate FiO2 02/06/25 11:26 79 126/97 02/06/25 09:00 98.6 18 95 98.6 02/06/25 08:00 Room Air* 0 21 Total Intake and Output 02/05/25 02/05/25 02/06/25 15:00 23:00 07:00 Intake Total 980 ml 240 ml Balance 980 ml 240 ml medications Current Medications Medications Dose Ordered Sig/Humphrey Route Start Time Stop Time Status Last Admin Dose Admin Atorvastatin Calcium 40 mg HS PO 01/31/25 22:00 02/05/25 21:24 40 MG Aspirin 81 mg DAILY PO 02/01/25 10:00 02/06/25 10:26 81 MG Levothyroxine Sodium 50 mcg QAM@0600 PO 02/01/25 06:00 02/06/25 05:31 50 MCG Enoxaparin Sodium 100 mg Q12HR SC 02/04/25 10:00 02/06/25 10:26 100 MG Metoprolol Tartrate 25 mg BID PO 02/03/25 22:00 02/06/25 10:26 25 MG Acetaminophen/ Hydrocodone Bitart 1 tab Q4HPRN PRN PO 02/04/25 09:15 02/05/25 21:25 1 TAB Hydralazine HCl 10 mg Q6HP PRN IV 02/06/25 09:45 Examination Patient is lying in the bed General: The patient alert and oriented in person place and time. Patient following commands HEENT: Normocephalic, atraumatic, normal reactive pupils, EOM intact, pink conjunctiva, pink moist mucous membrane Respiratory/pulmonary: Bilateral chest expansion, no pain on palpation of chest wall, clear lungs bilaterally, vesicular murmurs present in almost all lung barfield, no associated crackles or wheezes. Cardiovascular: At the time of examination Normal RRR, normal S1 and S2, no murmurs Abdomen: Abdomen nondistended, normal bowel sounds, soft, there is no pain to palpation in any of the abdominal quadrants, no palpable masses. Extremities: No deformities, there is no peripheral edema present at the lower extremities, normal pulses Skin: No rashes or pruritus, there is no sacral edema present at this time. Neurological: Intact cranial nerves with no focal neurologic deficits, sensation intact bilateral upper extremities and lower extremities, strength 5/5 right upper and lower extremity, strength 5/5 left upper and lower extremity. laboratory and microbiology Laboratory Tests 02/06/25 05:45 Test 02/06/25 05:45 Range/Units Serum Glucose 90 74-106 mg/dL Labs and/or images reviewed: Labs reviewed by me, Image(s) reviewed by me Problem List/Assessment/Plan Problem List/Assessment/Plan #Transient ischemic attack - Head CT: no CT evidence of an acute intracranial abnormality. - Carotid Doppler: No hemodynamically significant cervical stenosis - Head/ neck CT angio: No acute CTA abnormality of the major head and neck arterial vasculature, high-grade stenosis at the right carotid terminus - Aspirin 325 mg p.o. once - Atorvastatin 40 mg p.o. HS - Echocardiogram , pending reading - ABCD2: 4 - Neurology on board, suggested NOT IV Thrombolysis or IA Intervention candidate. Target SBP less than 220, DBP less than 120; Statin goal of LDL less than 70; permissive hypertension; 'R carotid terminus high grade stenosis on CTA however US carotids (may be too distal for US to pear picker) normal - will need non-acute vascular surgery consultation to review for possible repeat CTA and consideration of intervention with CEA vs stent in 2 days to 2 weeks, however stroke may be related to afib' -vascular surgery consult suggested aspirin and Plavix to be continued and to control comorbidities #Right Carotid Stenosis - Head/Neck CT Angio: High grade stenosis at the right carotid terminus - Cardiology has been consulted, carotid angio to be done on 02/08/2025, already scheduled #Sick sinus syndrome #Rule out structural heart disease #Second-degree AV block #Paroxysmal Atrial Fibrillation (chads Vasc 2), newly diagnosed - EKG: Atrial fibrillation - Enoxaparin 90 mg (1 mg/kg) q12 hours SC - Cardiology on board and patient underwent successful placement of permanent pacemaker today. - A chest x-ray was ordered for evaluation of placement. Impression: Successful placement of permanent pacemaker. Dual-chamber pacing leads in place with adequate capture and sensitivity. No complications -The pacemaker device placedis an Amvia edge DRT-T by [employer]. Reference number is [id number] serial number [id number] The atrial lead is a Biotronik S 53 and the ventricular lead is a Biotronik S 60. Atrial lead serial number [id number] with a threshold of three mV P waves at 0.4 milliseconds and 625 Ohms of impedance The ventricular lead is a Biotronik S 60 serial number [id number]. R-wave of seven with 0.8 volts at 0.4 milliseconds and 840 Ohms of impedance. Pacing parameters are at a DDDR mode at a rate of 60/130. Av delay of 200 milliseconds a post ventricular refractory period of 275 milliseconds we will be RA sensitivity at 0.5 mV with a maximum RV sensitivity auto at 2 mV RA/RV output 3.5 volts at 0.4 milliseconds. - cardiology on board suggested on 02/03: Pacemaker follow up appointments have been scheduled for 02/10/2025 at 1:00 p.m., 02/14/2025 at 3:30 p.m. and 02/24/2025 at 9:45 a.m in the outpatient cardiology clinic with . Patient was also found to have a high-grade stenosis of the right carotid terminus. The patient was offered a carotid angiogram which initially he refused. Procedure discussed with the patient full detail including risks and benefits. After the primary care team went to speak with the patient, the patient is now agreeable to undergo procedure. We will schedule the patient at soonest availability, tentatively on 02/06/2025. -carotid angio scheduled for 02/08/2025 -Eliquis on hold #Hypothyroidism - TSH: 16.44, FT4: 0.91, Total T3: 1.41 - Levothyroxine 50 mcg PO qAM #Hypertensive Urgency - Monitor BP #Prediabetes , HbA1c 5.5 - I have counseled the patient on healthy lifestyle habits #Medication noncompliance - I have counseled the patient on the importance of maintaining medication adherence for ample control of his health. #Morbid obesity, bmi 28.8 -pt counselled on need of exercise and diet as well as lifestyle modification as well as need of weight loss Diet: Cardiac DVT prophylaxis: Patient is on therapeutic dose of enoxaparin GI prophylaxis: Not indicated Case discussed with Dr. Obrien Plan discussed with: Patient Date of Service: Feb 06, 2025 Billing Provider: TYRONE OBRIEN MD, SREYA RESIDENT Feb 06, 2025 13:18
--- NOTE | 2025-02-06 18:11 | DVHSR ---
APPROVED REPORT EXAM: Two-dimensional and M-mode echocardiogram with Doppler and color Doppler. Blood Pressure: 131/82 mmHg INDICATION EF RISK FACTORS Height: 6', Weight: 204 DIMENSIONS LVDd4.5 (3.8-5.7cm)LA (2D)4.4 (1.9-4.0cm)Aortic Root3.7 (2.0-3.7cm) LVDs3.3 (2.5-4.0cm)LA (MM) (1.9-4.0cm)Aortic Cusp Exc2.3 (1.5-2.0cm) EF (%) 51.0 (55-70%)Rt. Atrium (1.9-4.0cm)Asc. Aorta4.2 cm IVSd0.9 (0.7-1.1cm)RV (D) (1.8-2.4cm) PWd1.2 (0.7-1.1cm) Mitral Valve MitralMitral Stenosis E wave0.82m/sMV Mean GR.mmHg E/A ratio0.02D MVAcm2 Aortic Valve Aortic ValveAortic Stenosis V10.93m/Yo Mean GR.mmHg LVOT Diameter2.4 (1.8-2.4cm)Doppler AVA0.00cm2 Pulmonic Valve V20.76m/s Tricuspid Valve TR Velocity1.89m/s [id number] Other Information Quality : Technically LimitedRhythm : Technically limited study due to body habitus. Conclusion Technically good study. Atrial fibrillation. Aortic root enlargement. Concentric LVH. Mild aortic sclerosis. The mitral and tricuspid are structurally normal. The pulmonic is normal. EF of 60% with normal RV function. Mild TR. No pericardial effusion masses or vegetations.
[2025-02-06] MEDS: ACETAMINOPHEN 325 MG TAB PO PRN (22:18)
[2025-02-07] VITALS (8 sets, daily range): BP systolic 119–127; BP diastolic 81–96; PULSE 72–83; RESP 16–18; TEMP 97.6–98.4; O2SAT 95–99
--- NOTE | 2025-02-07 14:01 | DVHPNRES ---
Progress Note Date Seen: Feb 07, 2025 Resident Creating Document: ERIKA SILVESTRE RESIDENT Has the PT tested + for MRSA If YES, has PT been informed?: No Medical Necessity Reason Pt with a Central, PICC or Fol: No Subjective Review of Systems Mr. Mosqueda is a 64-year-old male with prior medical history of hypertension, hypothyroidism, prediabetes, and medication noncompliance, who presents today with chief complaint of syncope. The patient states he has had 2 syncopal episodes since Thursday. He refers that on Thursday he was utilizing the bathroom when he lost consciousness stating he woke up on the ground approximately 10 seconds later. The following day he had another episode where he woke up on the ground on this occasion had weakness of the left leg, which would resolve on its own. He went to see his PCP who instructed the patient to go to the emergency department. On evaluation in the ED, the patient was hypertensive with other vital signs within normal range. Initial labs show CBC and chemical panel within normal range, UA was unremarkable. In the ED the patient had sudden onset of left face and arm weakness and numbness associated with word slurring. Twelve lead EKG showed atrial fibrillation. Head CT was done showing no evidence of an acute intracranial abnormality. patient was evaluated by tele neuro who recommended CT angio of the head and neck which showed no acute CT abnormality of the major head and neck arterial vasculature, high-grade stenosis at the right carotid terminus. The patient was started on therapeutic Lovenox, aspirin, and Lipitor. Cardiovascular: HTN Endocrine: Hypothyroidism, Other (Prediabetes) Past Surgical History: Other (Back surgery) Family History: Cancer (Small-cell lung cancer in mother, father, and brother), Hypertension (Father), Other (Sister: BPD and schizophrenia) Smoke: No ALCOHOL: none Drugs: None Lives: with Family Domestic Violence: Neg ROS: 02/01/2025: Patient was seen and examined by me at the bedside. Patient reports feeling better and he has normal power and strength. Neurology is on board. We will continue anticoagulation with the aspirin 81 mg p.o., atorvastatin 40 mg HS and enoxaparin therapeutic dose. Vascular surgery consultation place, pending 02/02/2025: Patient was seen and examined by me at the bedside. Patient reports feeling all right and has normal power and strength. the surgery on board suggested aspirin and Plavix and to control comorbidities. Cardiology on board and patient underwent successful placement of permanent pacemaker today. A chest x-ray was ordered for evaluation of placement. Impression: Successful placement of permanent pacemaker. Dual-chamber pacing leads in place with adequate capture and sensitivity. No complications 02/03/2025: Patient was seen and examined by me at the bedside. Patient reports feeling better. cardiology has been following up and suggested " Pacemaker follow up appointments have been scheduled for 02/10/2025 at 1:00 p.m., 02/14/2025 at 3:30 p.m. and 02/24/2025 at 9:45 a.m in the outpatient cardiology clinic with . Patient was also found to have a high-grade stenosis of the right carotid terminus. The patient was offered a carotid angiogram which initially he refused. Procedure discussed with the patient full detail including risks and benefits. After the primary care team went to speak with the patient, the patient is now agreeable to undergo procedure. We will schedule the patient at soonest availability, tentatively on 02/06/2025." Eliquis will be stopped over the weekend as per Cardiology 02/04/25: Patient was seen and examined by me at the bedside. Cardiology let us know that due to unavailability of one of the cath labs, pts appointment for carotid angio would have to be shifted to thursday02/08/2025. Pt counselled regarding it and after a lengthy discussion of the benefit of getting the procedure done due to his carotid stenosis, patient agreed to stay. He complains of pain in the surgical incision site and norco 5/325q4 has been scheduled. He has no sob,dizziness, chest pain or any other symptoms today morning or overnight. We will continue to monitor him and wait for cardiology intervention on thursday. Eliquis will be held until then 02/05/25 Patient was seen today at bedside. Less than chart reviewed. No acute complaint. We will continue current management. 02/06/2025 patient was seen and examined by me today. Patient has no new complaints. We will continue current management. DNR status has been changed to full code today. 02/07/2025 patient was seen and examined by me today. he complains of intermittent numbness in his left hand which he reports as feeling heavy, limp, asleep lasting 5-10 minutes. On examination his power and strength are 5/5. Carotid angio scheduled for tomorrow. Objective vital signs Vital Sign Date Time Temp Pulse Resp B/P (MAP) Pulse Ox O2 Delivery O2 Flow Rate FiO2 02/07/25 13:00 97.8 72 18 123/95 (104) 96 97.8 02/07/25 08:00 Room Air* 0 21 Total Intake and Output 02/06/25 02/06/25 02/07/25 15:00 23:00 07:00 Intake Total 560 ml 0 ml Balance 560 ml 0 ml medications Current Medications Medications Dose Ordered Sig/Humphrey Route Start Time Stop Time Status Last Admin Dose Admin Atorvastatin Calcium 40 mg HS PO 01/31/25 22:00 02/06/25 22:16 40 MG Aspirin 81 mg DAILY PO 02/01/25 10:00 02/07/25 10:33 81 MG Levothyroxine Sodium 50 mcg QAM@0600 PO 02/01/25 06:00 02/07/25 06:08 50 MCG Enoxaparin Sodium 100 mg Q12HR SC 02/04/25 10:00 02/07/25 10:34 100 MG Metoprolol Tartrate 25 mg BID PO 02/03/25 22:00 02/07/25 10:34 25 MG Acetaminophen/ Hydrocodone Bitart 1 tab Q4HPRN PRN PO 02/04/25 09:15 02/05/25 21:25 1 TAB Acetaminophen 325 mg Q4HP PRN PO 02/06/25 21:45 02/06/25 22:18 325 MG Examination Patient is lying in the bed General: The patient alert and oriented in person place and time. Patient following commands HEENT: Normocephalic, atraumatic, normal reactive pupils, EOM intact, pink conjunctiva, pink moist mucous membrane Respiratory/pulmonary: Bilateral chest expansion, no pain on palpation of chest wall, clear lungs bilaterally, vesicular murmurs present in almost all lung barfield, no associated crackles or wheezes. Cardiovascular: At the time of examination Normal RRR, normal S1 and S2, no murmurs Abdomen: Abdomen nondistended, normal bowel sounds, soft, there is no pain to palpation in any of the abdominal quadrants, no palpable masses. Extremities: No deformities, there is no peripheral edema present at the lower extremities, normal pulses Skin: No rashes or pruritus, there is no sacral edema present at this time. Neurological: Intact cranial nerves with no focal neurologic deficits, sensation intact bilateral upper extremities and lower extremities, strength 5/5 right upper and lower extremity, strength 5/5 left upper and lower extremity. laboratory and microbiology Laboratory Tests 02/06/25 05:45 Test 02/06/25 05:45 Range/Units Serum Glucose 90 74-106 mg/dL Labs and/or images reviewed: Labs reviewed by me, Image(s) reviewed by me Problem List/Assessment/Plan Problem List/Assessment/Plan #Transient ischemic attack - Head CT: no CT evidence of an acute intracranial abnormality. - Carotid Doppler: No hemodynamically significant cervical stenosis - Head/ neck CT angio: No acute CTA abnormality of the major head and neck arterial vasculature, high-grade stenosis at the right carotid terminus - Aspirin 325 mg p.o. once - Atorvastatin 40 mg p.o. HS - Echocardiogram , pending reading - ABCD2: 4 - Neurology on board, suggested NOT IV Thrombolysis or IA Intervention candidate. Target SBP less than 220, DBP less than 120; Statin goal of LDL less than 70; permissive hypertension; 'R carotid terminus high grade stenosis on CTA however US carotids (may be too distal for US to picker/puller) normal - will need non-acute vascular surgery consultation to review for possible repeat CTA and consideration of intervention with CEA vs stent in 2 days to 2 weeks, however stroke may be related to afib' -vascular surgery consult suggested aspirin and Plavix to be continued and to control comorbidities #Right Carotid Stenosis - Head/Neck CT Angio: High grade stenosis at the right carotid terminus - Cardiology has been consulted, carotid angio to be done on 02/08/2025, already scheduled #Sick sinus syndrome #Rule out structural heart disease #Second-degree AV block #Paroxysmal Atrial Fibrillation (chads Vasc 2), newly diagnosed - EKG: Atrial fibrillation - Enoxaparin 90 mg (1 mg/kg) q12 hours SC - Cardiology on board and patient underwent successful placement of permanent pacemaker today. - A chest x-ray was ordered for evaluation of placement. Impression: Successful placement of permanent pacemaker. Dual-chamber pacing leads in place with adequate capture and sensitivity. No complications -The pacemaker device placedis an Amvia edge DRT-T by [employer]. Reference number is [id number] serial number [id number] The atrial lead is a Biotronik S 53 and the ventricular lead is a Biotronik S 60. Atrial lead serial number [id number] with a threshold of three mV P waves at 0.4 milliseconds and 625 Ohms of impedance The ventricular lead is a Biotronik S 60 serial number [id number]. R-wave of seven with 0.8 volts at 0.4 milliseconds and 840 Ohms of impedance. Pacing parameters are at a DDDR mode at a rate of 60/130. Av delay of 200 milliseconds a post ventricular refractory period of 275 milliseconds we will be RA sensitivity at 0.5 mV with a maximum RV sensitivity auto at 2 mV RA/RV output 3.5 volts at 0.4 milliseconds. - cardiology on board suggested on 02/03: Pacemaker follow up appointments have been scheduled for 02/10/2025 at 1:00 p.m., 02/14/2025 at 3:30 p.m. and 02/24/2025 at 9:45 a.m in the outpatient cardiology clinic with . Patient was also found to have a high-grade stenosis of the right carotid terminus. The patient was offered a carotid angiogram which initially he refused. Procedure discussed with the patient full detail including risks and benefits. After the primary care team went to speak with the patient, the patient is now agreeable to undergo procedure. We will schedule the patient at soonest availability, tentatively on 02/06/2025. -carotid angio scheduled for 02/08/2025 -Tree on hold #Hypothyroidism - TSH: 16.44, FT4: 0.91, Total T3: 1.41 - Levothyroxine 50 mcg PO qAM #Hypertensive Urgency - Monitor BP #Prediabetes , HbA1c 5.5 - I have counseled the patient on healthy lifestyle habits #Medication noncompliance - I have counseled the patient on the importance of maintaining medication adherence for ample control of his health. #Morbid obesity, bmi 28.8 -pt counselled on need of exercise and diet as well as lifestyle modification as well as need of weight loss Diet: Cardiac DVT prophylaxis: Patient is on therapeutic dose of enoxaparin GI prophylaxis: Not indicated Case discussed with Dr. Obrien Plan discussed with: Patient My Orders My Orders Orders - ERIKA SILVESTRE RESIDENT Procedure Category Date Status Time Complete Blood Count LAB 02/08/25 Verified 04:00 Basic Metabolic Panel LAB 02/08/25 Verified 04:00 PTPTT LAB 02/08/25 Verified 04:00 Dietary Evaluation Review Comments: CCHO-60 Cardiac Diet Encourage and reinforce Dietary compliance Wt management upon D/C Expected Outcomes/Goals: gradual wt loss Date of Service: Feb 07, 2025 Billing Provider: TYRONE OBRIEN MD, SREYA RESIDENT Feb 07, 2025 14:01
--- NOTE | 2025-02-07 17:47 | DVHPN2 ---
Consult Progress Note Subjective Other Systems: Patient remains in paced rhythm on fitness technician Denies any cardiac symptoms at time of assessment Objective vital signs Vital Sign Date Time Temp Pulse Resp B/P (MAP) Pulse Ox O2 Delivery O2 Flow Rate FiO2 02/07/25 13:00 97.8 72 18 123/95 (104) 96 97.8 02/07/25 08:00 Room Air* 0 21 Total Intake and Output 02/06/25 02/06/25 02/07/25 15:00 23:00 07:00 Intake Total 560 ml 0 ml Balance 560 ml 0 ml medications Current Medications Medications Dose Ordered Sig/Humphrey Route Start Time Stop Time Status Last Admin Dose Admin Atorvastatin Calcium 40 mg HS PO 01/31/25 22:00 02/06/25 22:16 40 MG Aspirin 81 mg DAILY PO 02/01/25 10:00 02/07/25 10:33 81 MG Levothyroxine Sodium 50 mcg QAM@0600 PO 02/01/25 06:00 02/07/25 06:08 50 MCG Enoxaparin Sodium 100 mg Q12HR SC 02/04/25 10:00 02/07/25 10:34 100 MG Metoprolol Tartrate 25 mg BID PO 02/03/25 22:00 02/07/25 10:34 25 MG Acetaminophen/ Hydrocodone Bitart 1 tab Q4HPRN PRN PO 02/04/25 09:15 02/05/25 21:25 1 TAB Acetaminophen 325 mg Q4HP PRN PO 02/06/25 21:45 02/06/25 22:18 325 MG Examination: GENERAL:Normal, LUNGS:Normal, CVS:Normal, NEURO:Normal laboratory and microbiology Laboratory Tests 02/06/25 05:45 Test 02/06/25 05:45 Range/Units Serum Glucose 90 74-106 mg/dL Problem List/Assessment/Plan Problem List/Assessment/Plan Sick sinus syndrome s/p permanent pacemaker implantation (Biotronik) Atrial fibrillation, newly diagnosed Hypertensive urgency Transient ischemic attack Right carotid stenosis Hypothyroidism Morbid obesity Medical noncompliance Plan/Recommendations (Dr. Gorman): Case discussed with . Transthoracic echocardiogram reveals an EF of 60%. Patient noted to have atrial fibrillation, this is a new onset per patient. [id number] score: 3 points, HAS-BLED: 1 point. Continue therapeutic Lovenox (transition to DOAC prior discharge), hold antiarrhythmic agent given unknown duration of arrhythmia. Initiate beta-sarita for rate control. Slow ventricular rate reaching as low as 35bpm on fitness technician. Patient also noted to have episodic periods of tachycardia. Given sick sinus syndrome syndrome with syncopal episodes, the patient underwent a permanent pacemaker implantation on 02/02/2025. Interrogation was done on 02/03/2025 which reveals no abnormalities. Pacemaker follow up appointments have been scheduled for 02/10/2025 at 1:00 p.m., 02/14/2025 at 3:30 p.m. and 02/24/2025 at 9:45 a.m in the outpatient cardiology clinic with . Patient was also found to have a high-grade stenosis of the right carotid terminus. The patient was offered a carotid angiogram which initially he refused. Procedure discussed with the patient full detail including risks and benefits. After the primary care team went to speak with the patient, the patient is now agreeable to undergo procedure. We will schedule the patient at soonest availability, tentatively on 02/08/2025. Thank you for allowing us to care for this patient. Please call with any questions or concerns. This medical document was created using an electronic medical record system with voice recognition software and computerized dictation system. Although this document has been carefully reviewed, there might still be some phonetic and typographical errors. Occasional wrong-word or ``sound-alike substitutions may have occurred due to the inherent limitations of voice recognition software. These areas are purely typographical due to imperfections of the software programs and do not reflect any compromise in the patient's medical care. Please read the chart carefully and recognize, using context, where these substitutions have occurred. Plan discussed with: Patient Dietary Evaluation Review Comments[facility] Encourage and reinforce Dietary compliance Wt management upon D/C Expected Outcomes/Goals: gradual wt loss Date of Service: Feb 07, 2025 Billing Provider: JATINDER RICKS Common Visit Codes: [id number] INP/OBS CARE(HIGH) JATINDER RICKS Feb 07, 2025 17:47
[2025-02-08] VITALS (12 sets, daily range): BP systolic 119–151; BP diastolic 80–96; PULSE 71–83; RESP 12–20; TEMP 97.9–98.6; O2SAT 95–98
[2025-02-08 06:48] LABS: Hematocrit 45.3 % (41.0-53.0); Hemoglobin 15.7 g/dL (13.5-17.5); Mean Corpuscular Hemoglobin 30.2 pg (28.0-32.0); Mean Corpuscular Volume 87.3 fL (80.0-100.0); Nucleated Red Blood Cells % 0.1 %
[2025-02-08 07:04] LABS: Anion Gap 11 (5-15); Carbon Dioxide 22 mmol/L (20-31); Chloride 106 mmol/L (98-107); INR 1.08 (0.9-1.15); Partial Thromboplastin Time 30.2 SEC (24.5-34.5); Potassium 4.2 mmol/L (3.5-5.1); Prothrombin Time 11.4 sec (9.3-11.8); Sodium 139 mmol/L (136-145)
[2025-02-08 07:05] LABS: Calcium 9.2 mg/dL (8.7-10.4)
[2025-02-08 07:10] LABS: BUN/Creatinine Ratio 12.5 (10.0-20.0); Blood Urea Nitrogen 14 mg/dL (9-23); Glucose 96 mg/dL (74-106)
--- NOTE | 2025-02-08 08:23 | ECG ---
[facility] Test Date: 2025-01-31 Test Time: 14:29:26 Pat Name: CARLOS VILLELA Department: ED Room: 0292T A Gender: M Crate Builder: gp : 1960 Requested By: CHUCK ORDOÑEZ Order Number: [id number] Reading MD: Raoul Gorman Measurements Intervals [place] Rate: 77 P: 0 [place]: 0 QRS: 26 QRSD: 105 T: 35 QT: 401 QTc: 454 Interpretive Statements Atrial fibrillation Paired ventricular premature complexes Low voltage, precordial leads Minimal ST depression, inferior leads Electronically Signed On 02-08-2025 9:03:47 PDT by Raoul Gorman Please click the below link to view image of tracing.
[2025-02-08] MEDS: IODIXANOL 320MG/ML 100ML BTL IV ONE (14:54)
[2025-02-08] MEDS: GLYCOPYRROLATE 0.2 MG/ML 1ML VIAL ONE (15:07)
[2025-02-08] MEDS: ANGIOMAX 250 MG VIAL IV ONE (15:07)
[2025-02-08] MEDS: fentaNYL CITRATE 100 MCG/2 ML VL ONE (15:08)
[2025-02-08] MEDS: SODIUM CHL 0.9% 50 ML ONE (15:08)
[2025-02-08] MEDS: PHENYLEPHRINE IV 0 ML IV ONE (15:08)
[2025-02-08] MEDS: LIDOCAINE 2%HCL (LOCAL ANESTH.) INJ 20ML MDV ONE (15:08)
[2025-02-08] MEDS: MIDAZOLAM HCL 2MG/2ML 2ml VIAL (1mg/ml) ONE (15:08)
--- NOTE | 2025-02-08 17:09 | DVHPNRES ---
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 Mosqueda is a 64-year-old male with prior medical history of hypertension, hypothyroidism, prediabetes, and medication noncompliance, who presents today with chief complaint of syncope. The patient states he has had 2 syncopal episodes since Thursday. He refers that on Thursday he was utilizing the bathroom when he lost consciousness stating he woke up on the ground approximately 10 seconds later. The following day he had another episode where he woke up on the ground on this occasion had weakness of the left leg, which would resolve on its own. He went to see his PCP who instructed the patient to go to the emergency department. On evaluation in the ED, the patient was hypertensive with other vital signs within normal range. Initial labs show CBC and chemical panel within normal range, UA was unremarkable. In the ED the patient had sudden onset of left face and arm weakness and numbness associated with word slurring. Twelve lead EKG showed atrial fibrillation. Head CT was done showing no evidence of an acute intracranial abnormality. patient was evaluated by tele neuro who recommended CT angio of the head and neck which showed no acute CT abnormality of the major head and neck arterial vasculature, high-grade stenosis at the right carotid terminus. The patient was started on therapeutic Lovenox, aspirin, and Lipitor. Cardiovascular: HTN Endocrine: Hypothyroidism, Other (Prediabetes) Past Surgical History: Other (Back surgery) Family History: Cancer (Small-cell lung cancer in mother, father, and brother), Hypertension (Father), Other (Sister: BPD and schizophrenia) Smoke: No ALCOHOL: none Drugs: None Lives: with Family Domestic Violence: Neg ROS: 02/01/2025: Patient was seen and examined by me at the bedside. Patient reports feeling better and he has normal power and strength. Neurology is on board. We will continue anticoagulation with the aspirin 81 mg p.o., atorvastatin 40 mg HS and enoxaparin therapeutic dose. Vascular surgery consultation place, pending 02/02/2025: Patient was seen and examined by me at the bedside. Patient reports feeling all right and has normal power and strength. the surgery on board suggested aspirin and Plavix and to control comorbidities. Cardiology on board and patient underwent successful placement of permanent pacemaker today. A chest x-ray was ordered for evaluation of placement. Impression: Successful placement of permanent pacemaker. Dual-chamber pacing leads in place with adequate capture and sensitivity. No complications 02/03/2025: Patient was seen and examined by me at the bedside. Patient reports feeling better. cardiology has been following up and suggested " Pacemaker follow up appointments have been scheduled for 02/10/2025 at 1:00 p.m., 02/14/2025 at 3:30 p.m. and 02/24/2025 at 9:45 a.m in the outpatient cardiology clinic with . Patient was also found to have a high-grade stenosis of the right carotid terminus. The patient was offered a carotid angiogram which initially he refused. Procedure discussed with the patient full detail including risks and benefits. After the primary care team went to speak with the patient, the patient is now agreeable to undergo procedure. We will schedule the patient at soonest availability, tentatively on 02/06/2025." Eliquis will be stopped over the weekend as per Cardiology 02/04/25: Patient was seen and examined by me at the bedside. Cardiology let us know that due to unavailability of one of the cath labs, pts appointment for carotid angio would have to be shifted to thursday02/08/2025. Pt counselled regarding it and after a lengthy discussion of the benefit of getting the procedure done due to his carotid stenosis, patient agreed to stay. He complains of pain in the surgical incision site and norco 5/325q4 has been scheduled. He has no sob,dizziness, chest pain or any other symptoms today morning or overnight. We will continue to monitor him and wait for cardiology intervention on thursday. Eliquis will be held until then 02/05/25 Patient was seen today at bedside. Less than chart reviewed. No acute complaint. We will continue current management. 02/06/2025 patient was seen and examined by me today. Patient has no new complaints. We will continue current management. DNR status has been changed to full code today. 02/07/2025 patient was seen and examined by me today. he complains of intermittent numbness in his left hand which he reports as feeling heavy, limp, asleep lasting 5-10 minutes. On examination his power and strength are 5/5. Carotid angio scheduled for tomorrow. 02/08/2025 patient was seen and examined by me today. Patient has no new complaints. Patient was taken to the color laboratory technician. Procedure completed, we will continue to monitor the patient. Official notes pending Objective vital signs Vital Sign Date Time Temp Pulse Resp B/P (MAP) Pulse Ox O2 Delivery O2 Flow Rate FiO2 02/08/25 16:30 80 17 133/91 (105) 97 02/08/25 13:00 97.9 97.9 02/08/25 08:00 Room Air* 0 21 Total Intake and Output 02/07/25 02/07/25 02/08/25 15:00 23:00 07:00 Intake Total 800 ml Balance 800 ml medications Current Medications Medications Dose Ordered Sig/Humphrey Route Start Time Stop Time Status Last Admin Dose Admin Atorvastatin Calcium 40 mg HS PO 01/31/25 22:00 02/07/25 22:08 40 MG Aspirin 81 mg DAILY PO 02/01/25 10:00 02/08/25 10:11 81 MG Levothyroxine Sodium 50 mcg QAM@0600 PO 02/01/25 06:00 02/08/25 05:17 50 MCG Enoxaparin Sodium 100 mg Q12HR SC 02/04/25 10:00 02/07/25 10:34 100 MG Metoprolol Tartrate 25 mg BID PO 02/03/25 22:00 02/08/25 10:10 25 MG Acetaminophen/ Hydrocodone Bitart 1 tab Q4HPRN PRN PO 02/04/25 09:15 02/05/25 21:25 1 TAB Acetaminophen 325 mg Q4HP PRN PO 02/06/25 21:45 02/08/25 05:52 325 MG Examination Patient is lying in the bed General: The patient alert and oriented in person place and time. Patient following commands HEENT: Normocephalic, atraumatic, normal reactive pupils, EOM intact, pink conjunctiva, pink moist mucous membrane Respiratory/pulmonary: Bilateral chest expansion, no pain on palpation of chest wall, clear lungs bilaterally, vesicular murmurs present in almost all lung barfield, no associated crackles or wheezes. Cardiovascular: At the time of examination Normal RRR, normal S1 and S2, no murmurs Abdomen: Abdomen nondistended, normal bowel sounds, soft, there is no pain to palpation in any of the abdominal quadrants, no palpable masses. Extremities: No deformities, there is no peripheral edema present at the lower extremities, normal pulses Skin: No rashes or pruritus, there is no sacral edema present at this time. Neurological: Intact cranial nerves with no focal neurologic deficits, sensation intact bilateral upper extremities and lower extremities, strength 5/5 right upper and lower extremity, strength 5/5 left upper and lower extremity. laboratory and microbiology Laboratory Tests 02/08/25 06:09 Test 02/08/25 06:09 Range/Units Serum Glucose 96 74-106 mg/dL Labs and/or images reviewed: Labs reviewed by me, Image(s) reviewed by me Problem List/Assessment/Plan Problem List/Assessment/Plan #Transient ischemic attack - Head CT: no CT evidence of an acute intracranial abnormality. - Carotid Doppler: No hemodynamically significant cervical stenosis - Head/ neck CT angio: No acute CTA abnormality of the major head and neck arterial vasculature, high-grade stenosis at the right carotid terminus - Aspirin 325 mg p.o. once - Atorvastatin 40 mg p.o. HS - Echocardiogram , pending reading - ABCD2: 4 - Neurology on board, suggested NOT IV Thrombolysis or IA Intervention candidate. 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) normal - will need non-acute vascular surgery consultation to review for possible repeat CTA and consideration of intervention with CEA vs stent in 2 days to 2 weeks, however stroke may be related to afib' -vascular surgery consult suggested aspirin and Plavix to be continued and to control comorbidities #Right Carotid Stenosis - Head/Neck CT Angio: High grade stenosis at the right carotid terminus - Cardiology has been consulted, carotid angio to be done on 02/08/2025, already scheduled -carotid angio done today #Sick sinus syndrome s/p permanent pacemaker implantation (Biotronik) #Rule out structural heart disease #Second-degree AV block #Paroxysmal Atrial Fibrillation (chads Vasc 2), newly diagnosed - EKG: Atrial fibrillation - Enoxaparin 90 mg (1 mg/kg) q12 hours SC - Cardiology on board and patient underwent successful placement of permanent pacemaker today. - A chest x-ray was ordered for evaluation of placement. Impression: Successful placement of permanent pacemaker. Dual-chamber pacing leads in place with adequate capture and sensitivity. No complications -The pacemaker device placedis an Amvia edge DRT-T by [employer]. Reference number is [id number] serial number [id number] The atrial lead is a Biotronik S 53 and the ventricular lead is a Biotronik S 60. Atrial lead serial number [id number] with a threshold of three mV P waves at 0.4 milliseconds and 625 Ohms of impedance The ventricular lead is a Biotronik S 60 serial number [id number]. R-wave of seven with 0.8 volts at 0.4 milliseconds and 840 Ohms of impedance. Pacing parameters are at a DDDR mode at a rate of 60/130. Av delay of 200 milliseconds a post ventricular refractory period of 275 milliseconds we will be RA sensitivity at 0.5 mV with a maximum RV sensitivity auto at 2 mV RA/RV output 3.5 volts at 0.4 milliseconds. - cardiology on board suggested on 02/03: Pacemaker follow up appointments have been scheduled for 02/10/2025 at 1:00 p.m., 02/14/2025 at 3:30 p.m. and 02/24/2025 at 9:45 a.m in the outpatient cardiology clinic with . Patient was also found to have a high-grade stenosis of the right carotid terminus. The patient was offered a carotid angiogram which initially he refused. Procedure discussed with the patient full detail including risks and benefits. After the primary care team went to speak with the patient, the patient is now agreeable to undergo procedure. We will schedule the patient at soonest availability, tentatively on 02/06/2025. -carotid angio scheduled for 02/08/2025 -Eliquis on hold #Hypothyroidism - TSH: 16.44, FT4: 0.91, Total T3: 1.41 - Levothyroxine 50 mcg PO qAM #Hypertensive Urgency - Monitor BP #Prediabetes , HbA1c 5.5 - I have counseled the patient on healthy lifestyle habits #Medication noncompliance - I have counseled the patient on the importance of maintaining medication adherence for ample control of his health. #Morbid obesity, bmi 28.8 -pt counselled on need of exercise and diet as well as lifestyle modification as well as need of weight loss Diet: Cardiac DVT prophylaxis: Patient is on therapeutic dose of enoxaparin GI prophylaxis: Not indicated Case discussed with Dr. Obrien Plan discussed with: Patient Dietary Evaluation Review Comments: CCHO-60 Cardiac Diet Encourage and reinforce Dietary compliance Wt management upon D/C Expected Outcomes/Goals: gradual wt loss Date of Service: Feb 08, 2025 Billing Provider: TYRONE OBRIEN MD, SREYA RESIDENT Feb 08, 2025 17:09
--- NOTE | 2025-02-08 18:02 | DVHOP2 ---
Operative Report - 2 Report Details Date: 02/08/25 Preop Diagnosis: Carotid stenosis Postop Diagnosis: No significant carotid disease Surgeon: Eri Gorman MD Anesthesiologist: Conscious sedation Anesthesia: Mac, Local Consent: The patient was informed of the risks and benefits of the procedure. These include but are not limited to complications of anesthesia, postoperative infection, incomplete relief of symptoms, recurrence of symptoms, damage to blood vessels, nerves and tendons, deep venous thrombosis, pulmonary embolism and possible need for repeat surgery in the future. Complications: No complications Findings: No significant carotid disease Indications for Surgery: TIA. Abnormal CTA Name of Procedure Performed Bilateral carotid angiography Procedure Details Procedure Details: Prior full informed consent obtained the patient was prepped and draped in the usual fashion and a six [place] sheath placed into the femoral artery. A JR4 diagnostic catheter was placed and angiographic evaluation of the right vertebral right common carotid left common carotid and left subclavian veins were performed. Patient tolerated procedure well there were no complications Hemodynamics: Aortic blood pressure was 50/70. Angiographic evaluation of the right vertebral is normal. The right common carotid is normal. The bifurcation involving the internal carotid and external carotid is unremarkable. There is a small step-up within the internal carotid artery however no critical lesions are present. There is no stenosis greater than 20% within the proximal internal carotid artery. The cerebral circulation appears to be within normal limits. The left common carotid is within normal limits. The bifurcation of the external and internal carotid arteries on the left are within normal limits. There was a small step-up within the left internal carotid artery. There is no significant disease noted at this level. The terminalis of the internal carotid has a 60-70% stenosis. This is not amenable to angioplasty. The left subclavian is within normal limits. The thyrocervical branch is visualized as well as the left internal mammary artery however the left vertebral artery could not be visualized. The cerebral circulation on the left side is within normal limits. Impression: No significant carotid stenosis present. Recommendations: We will continue with current medical therapy. Risk factor modification to continue Specimen: None Condition Good Disposition Still a Patient Date of Service: Feb 08, 2025 Billing Provider: ERI GORMAN Sr., MD Cardiology Common Codes: [id number] INP/OBS CARE (High) (Bilateral carotid angiography) ERI GORMAN Sr., MD Feb 08, 2025 18:02
[2025-02-09 01:00] VITALS: BP 118/95; PULSE 75; RESP 18; TEMP 97.8; O2SAT 97
[2025-02-09 05:00] VITALS: BP 139/80; PULSE 78; RESP 18; TEMP 97.6; O2SAT 100
[2025-02-09 06:30] LABS: Hematocrit 47.6 % (41.0-53.0); Hemoglobin 17.1 g/dL (13.5-17.5); Mean Corpuscular Hemoglobin 31.0 pg (28.0-32.0); Mean Corpuscular Volume 86.4 fL (80.0-100.0); Nucleated Red Blood Cells % 0.1 %
[2025-02-09 06:36] LABS: Chloride 105 mmol/L (98-107); Potassium 4.4 mmol/L (3.5-5.1); Sodium 139 mmol/L (136-145)
[2025-02-09 06:37] LABS: Anion Gap 9 (5-15); Calcium 9.3 mg/dL (8.7-10.4); Carbon Dioxide 25 mmol/L (20-31)
[2025-02-09 06:42] LABS: BUN/Creatinine Ratio 12.9 (10.0-20.0); Blood Urea Nitrogen 16 mg/dL (9-23); Glucose 90 mg/dL (74-106)
[2025-02-09 08:00] VITALS: PULSE 112; PULSE 86; RESP 18; O2SAT 99
[2025-02-09 09:00] VITALS: BP 123/73; PULSE 86; RESP 18; TEMP 97.8; O2SAT 99
--- NOTE | 2025-02-09 12:34 | DVHDSRES ---
Discharge Summary Date of Admission Resident Creating Document: ERIKA SILVESTRE RESIDENT Jan 31, 2025 at 22:00 Date of Discharge: Feb 09, 2025 Labs/Diagnostic Data: Laboratory Results Test 02/09/25 06:10 02/08/25 06:09 02/06/25 05:45 02/01/25 06:13 White Blood Count 6.9 10^3/uL (4.4-10.8) Red Blood Count 5.51 10^6/uL (4.5-5.90) Hemoglobin 17.1 g/dL (13.5-17.5) Hematocrit 47.6 % (41.0-53.0) Mean Corpuscular Volume 86.4 fL (80.0-100.0) Mean Corpuscular Hemoglobin 31.0 pg (28.0-32.0) Mean Corpuscular Hemoglobin Concent 35.9 g/dL (32.0-36.0) Red Cell Distribution Width 14.5 % (11.8-14.3) Platelet Count 179 10^3/uL (140-450) Mean Platelet Volume 8.5 fL (6.9-10.8) Neutrophils (%) (Auto) 68.8 % (37.0-80.0) Lymphocytes (%) (Auto) 19.2 % (10.0-50.0) Monocytes (%) (Auto) 8.6 % (0.0-12.0) Eosinophils (%) (Auto) 2.7 % (0.0-7.0) Basophils (%) (Auto) 0.7 % (0.0-2.0) Neutrophils # (Auto) 4.7 10 ^3/uL (1.6-8.6) Lymphocytes # (Auto) 1.3 10 ^3/uL (0.4-5.4) Monocytes # (Auto) 0.6 10 ^3/uL (0-1.3) Eosinophils # (Auto) 0.2 10 ^3/uL (0-0.8) Basophils # (Auto) 0.1 10 ^3/uL (0-0.2) Nucleated Red Blood Cells 0.1 % Sodium Level 139 mmol/L (136-145) Potassium Level 4.4 mmol/L (3.5-5.1) Chloride Level 105 mmol/L (98-107) Carbon Dioxide Level 25 mmol/L (20-31) Anion Gap 9 (5-15) Blood Urea Nitrogen 16 mg/dL (9-23) Creatinine 1.24 mg/dL (0.700-1.30) Glomerular Filtration Rate Calc 65 mL/min (>90) BUN/Creatinine Ratio 12.9 (10.0-20.0) Serum Glucose 90 mg/dL (74-106) Calcium Level 9.3 mg/dL (8.7-10.4) Prothrombin Time 11.4 sec (9.3-11.8) Prothrombin Time INR 1.08 (0.9-1.15) Activated Partial Thromboplast Time 30.2 SEC (24.5-34.5) Magnesium Level 2.1 mg/dL (1.6-2.6) Total Bilirubin 0.9 mg/dL (0.2-1.0) Aspartate Amino Transferase (AST) 27 U/L (13-40) Alanine Aminotransferase (ALT) 38 U/L (7-40) Alkaline Phosphatase 84 U/L (46-116) Total Protein 6.8 g/dL (5.7-8.2) Albumin 4.0 g/dL (3.2-4.8) Triglycerides Level 108 mg/dL (< 150) Cholesterol Level 156 mg/dL (< 200) LDL Cholesterol 106 mg/dL (< 100) HDL Cholesterol 41 mg/dL (40-59) Test 01/31/25 18:40 01/31/25 18:20 01/31/25 16:13 01/31/25 15:13 Urine Color Yellow (Yellow) Urine Clarity Clear (Clear) Urine pH 8.0 (5.0-9.0) Urine Specific [place] 1.023 (1.001-1.035) Urine Protein 1+ (Negative) Urine Ketones Trace (Negative) Urine Blood Negative /uL (Negative) Urine Nitrite Negative (Negative) Urine Bilirubin Negative (Negative) Urine Urobilinogen Normal mg/dL (Negative) Urine Leukocyte Esterase Negative /uL (Negative) Urine RBC 4 /hpf (0 - 3) Urine Microscopic WBC < 1 /HPF (0-3) Urine Squamous Epithelial Cells None seen /hpf (<5) Urine Bacteria None seen /hpf (None Seen) Urine Glucose Normal mg/dL (Normal) Phosphorus Level 3.0 mg/dL (2.4-5.1) Direct Bilirubin 0.2 mg/dL (<0.3) Troponin I High Sensitivity 6 ng/L (</=54) Thyroid Stimulating Hormone (TSH) 16.44 uIU/mL (0.55-4.78) Hemoglobin A1c 5.5 % A1C (<5.7) B-Type Natriuretic Peptide 69.30 pg/mL (0-100) Vitamin B12 Level 371 pg/mL (211-911) Vitamin D 25-Hydroxy 40.0 ng/mL (30.0-100) Free Thyroxine (T4) Calculated 0.91 ng/dL (0.89-1.76) Total Triiodothyronine (TT3) 1.41 ng/mL (0.60-1.81) Other Laboratory Tests 02/09/25 06:10 Brief Hx & Hospital Course: Brief history of hospitalization: Mr. Mosqueda is a 64-year-old male with prior medical history of hypertension, hypothyroidism, prediabetes, and medication noncompliance, who presents today with chief complaint of syncope Causing him to fall down. He had an episode of TIA in the emergency room here at the hospital. CT was done which no evidence of acute intracranial abnormality. Chronic microvascular ischemic changes inconspicuous lacunar infarction particularly in the right centrum semiovale not excluded. Started duplex showed no hemodynamically significant cervical stenosis. A CT angio of the head and neck was then done which showed no acute CT abnormality of the major neck arterial vasculature but a high-grade stenosis of the right carotid terminus. Neurology Consult was done who suggested no IV Thrombolysis or IA Intervention candidate. Target SBP less than 220, DBP less than 120; Statin goal of LDL less than 70; permissive hypertension; 'R carotid terminus high grade stenosis on CTA however US carotids (may be too distal for US to diamond picker) normal - will need non-acute vascular surgery consultation to review for possible repeat CTA and consideration of intervention with CEA vs stent in 2 days to 2 weeks, however stroke may be related to afib'. After that we got a consult from vascular surgery who suggested aspirin and Plavix to be continued and to control comorbidities. Atorvastatin 40 mg HS was continued. Patient had sick sinus syndrome And cardiology was on board. On 02/02/25 patient underwent successful placement of permanent pacemaker. A chest x-ray was ordered for evaluation of placement which showed Impression: Successful placement of permanent pacemaker. Dual-chamber pacing leads in place with adequate capture and sensitivity. No complications. Cardiology also recommended that the patient get a carotid angiogram for a high-grade stenosis of the right carotid terminus. Patient initially refused but upon discussion of the benefits and the need patient compliant. procedure was shifted to 02/08/25 and bilatyeral carotid angiography was done which shows no significant carotid stenosis present. Eliquis was not given to the patient throughout hospitalization anticipation of the precedure. Today the patient is feeling better and stable for discharge. Patient has communicated understanding regarding his condition, the need of continuous adherence to medication and he has agreed with the discharge plan. He will be discharged with Eliquis 5 mg, Patient is lying in the bed General: The patient alert and oriented in person place and time. Patient following commands HEENT: Normocephalic, atraumatic, normal reactive pupils, EOM intact, pink conjunctiva, pink moist mucous membrane Respiratory/pulmonary: Bilateral chest expansion, no pain on palpation of chest wall, clear lungs bilaterally, vesicular murmurs present in almost all lung barfield, no associated crackles or wheezes. Cardiovascular: At the time of examination Normal RRR, normal S1 and S2, no murmurs Abdomen: Abdomen nondistended, normal bowel sounds, soft, there is no pain to palpation in any of the abdominal quadrants, no palpable masses. Extremities: No deformities, there is no peripheral edema present at the lower extremities, normal pulses Skin: No rashes or pruritus, there is no sacral edema present at this time. Neurological: Intact cranial nerves with no focal neurologic deficits, sensation intact bilateral upper extremities and lower extremities, strength 5/5 right upper and lower extremity, strength 5/5 left upper and lower extremity. Operations or Procedures PROCEDURE(s): CXR1 - CHEST XRAY 1 VIEW REASON: syncope IMPRESSION: No acute intrathoracic process. EXAM: CT STROKE CTH INDICATION: cva IMPRESSION: No CT evidence of an acute intracranial abnormality. Chronic microvascular ischemic change inconspicuous lacunar infarction particularly in the right centrum semiovale not excluded. PROCEDURE(s): [place]neck - ANGIO HEAD/Neck REASON: cva IMPRESSION: No acute CTA abnormality of the major head and neck arterial vasculature. High-grade stenosis at the right carotid terminus. Carotid Duplex Clinical History: Stroke IMPRESSION: No hemodynamically significant cervical stenosis. CHEST RADIOGRAPH Indication: S/P PACEMAKER IMPRESSION: 1. No acute cardiopulmonary disease. 2. Interval placement of pacemaker. CHEST RADIOGRAPH Indication: CXR FOR PACEMAKER/ICD LEAD PLACEMENT IMPRESSION: No significant change from the prior exam, with a portion of the left chest excluded. Indications for Surgery: Second-degree AV block Name of Procedure Performed Permanent pacemaker implantation Procedure Details Procedure Details: Prior local anesthesia with 2% lidocaine to the left pectoral area and full informed consent obtained the patient was prepped and draped in the usual fashion followed by an incision of the left pectoral area and dissection planes with the electrocautery and blunt dissection. We formed a pocket under the pectoral fascia and flushed with antibiotic solution. We then impacted with an antibiotic filled Ray-Javier sponge. We then placed peel-away sheaths with J curved guidewires into the subclavian vein and placed active fixation electrodes into the right ventricular apex and right atrial appendage. These were sutured with 0 Ethibond after adequate capture and sensitivity thresholds were obtained. The generator was then connected to the leads and the Ray-Javier sponge was removed. The generator was placed into the pocket in the pocket was closed with 3-0 Vicryl and the skin was closed with 4-0 Monocryl. Fluoroscopic guidance was used throughout the procedure. Patient tolerated the procedure well there were no complications. The pacemaker device placedis an Amvia edge DRT-T by [employer]. Reference number is [id number] serial number [id number] The atrial lead is a Biotronik S 53 and the ventricular lead is a Biotronik S 60. Atrial lead serial number [id number] with a threshold of three mV P waves at 0.4 milliseconds and 625 Ohms of impedance The ventricular lead is a Biotronik S 60 serial number [id number]. R-wave of seven with 0.8 volts at 0.4 milliseconds and 840 Ohms of impedance. Pacing parameters are at a DDDR mode at a rate of 60/130. Av delay of 200 milliseconds a post ventricular refractory period of 275 milliseconds we will be RA sensitivity at 0.5 mV with a maximum RV sensitivity auto at 2 mV RA/RV output 3.5 volts at 0.4 milliseconds. A chest x-ray was ordered for evaluation of placement. Impression: Successful placement of permanent pacemaker. Dual-chamber pacing leads in place with adequate capture and sensitivity. No complications. As mentioned a chest x-ray will be ordered as well as an EKG. Risk factor modification to continue. Name of Procedure Performed Bilateral carotid angiography Procedure Details Procedure Details: Prior full informed consent obtained the patient was prepped and draped in the usual fashion and a six [place] sheath placed into the femoral artery. A JR4 diagnostic catheter was placed and angiographic evaluation of the right vertebral right common carotid left common carotid and left subclavian veins were performed. Patient tolerated procedure well there were no complications Hemodynamics: Aortic blood pressure was 50/70. Angiographic evaluation of the right vertebral is normal. The right common carotid is normal. The bifurcation involving the internal carotid and external carotid is unremarkable. There is a small step-up within the internal carotid artery however no critical lesions are present. There is no stenosis greater than 20% within the proximal internal carotid artery. The cerebral circulation appears to be within normal limits. The left common carotid is within normal limits. The bifurcation of the external and internal carotid arteries on the left are within normal limits. There was a small step-up within the left internal carotid artery. There is no significant disease noted at this level. The terminalis of the internal carotid has a 60-70% stenosis. This is not amenable to angioplasty. The left subclavian is within normal limits. The thyrocervical branch is visualized as well as the left internal mammary artery however the left vertebral artery could not be visualized. The cerebral circulation on the left side is within normal limits. Impression: No significant carotid stenosis present. Recommendations: We will continue with current medical therapy. Risk factor modification to continue Specimen: None Condition at Discharge: Stable Final Diagnosis/Problems List #Transient ischemic attack likely secondary to high grade right carotid stenosis #Right Carotid Stenosis #Sick sinus syndrome s/p permanent pacemaker implantation (Biotronik) #Rule out structural heart disease #Second-degree AV block #Paroxysmal Atrial Fibrillation (chads Vasc 2), newly diagnosed #Hypothyroidism #Hypertensive Urgency #Prediabetes , HbA1c 5.5 #Medication noncompliance #Morbid obesity, bmi 28.8 Discharge Disposition: Home Discharge Instruct/Medications Diet: Consistent carbohydrate, Cardiac 2g Na,low cholest Activity: No Restrictions, As Tolerated Follow Up/Referral: Follow up with primary care physician in 10 days Follow up at discharge clinic on 02/17/2025 a.m. clinic Medications: As stated in EMR Scheduled Apixaban Base (Eliquis), 5 MG PO BID Aspirin (Aspirin Low Dose), 81 MG PO DAILY Atorvastatin Calcium (Atorvastatin Calcium), 40 MG PO HS Metoprolol Tartrate (Lopressor), 25 MG PO BID Discharge Statement: "Patient was advised to return to the ER or call 911 if any headaches, dizziness, shortness of breath, chest pain, abdominal pain, bleeding, fevers, or worsening of medical condition. Patient was counseled about treatment plan, medications, possible side effects, patientverbalized understanding. All questions were answered to the best of my ability. This discharge took greater then 30 minutes in planning, reviewing documentation, counseling the patient, and discussing with other team members." ASSESSMENT ASSESSMENT Assessment #Transient ischemic attack Date of Service: Feb 09, 2025 Billing Provider: TYRONE MASON MD, SREYA RESIDENT Feb 09, 2025 12:34
[2025-02-09 13:00] VITALS: BP 130/87; PULSE 75; RESP 18; TEMP 98; O2SAT 99
[2025-02-09] MEDS ORDERED: ATOR20TA50 PO (13:20)
[2025-02-09] MEDS ORDERED: APIX5TAB PO (13:20)
[2025-02-09] MEDS ORDERED: MET25T PO (13:20)
[2025-02-09] MEDS ORDERED: ASPI-325 PO (13:20)
--- NOTE | 2025-02-09 14:28 | DVHPN2 ---
Consult Progress Note Subjective Other Systems: Patient remains in atrial fibrillation on cardiac nurse practitioner Denies any cardiac symptoms at time of assessment Objective vital signs Vital Sign Date Time Temp Pulse Resp B/P (MAP) Pulse Ox O2 Delivery O2 Flow Rate FiO2 02/09/25 09:54 86 123/73 02/09/25 09:00 97.8 18 99 97.8 02/09/25 08:00 Room Air* 0 21 Total Intake and Output 02/08/25 02/08/25 02/09/25 15:00 23:00 07:00 Intake Total 500 ml 240 ml Output Total 225 ml Balance 500 ml 15 ml medications Current Medications Medications Dose Ordered Sig/Humphrey Route Start Time Stop Time Status Last Admin Dose Admin Atorvastatin Calcium 40 mg HS PO 01/31/25 22:00 02/08/25 21:18 40 MG Aspirin 81 mg DAILY PO 02/01/25 10:00 02/09/25 09:54 81 MG Levothyroxine Sodium 50 mcg QAM@0600 PO 02/01/25 06:00 02/09/25 05:35 50 MCG Enoxaparin Sodium 100 mg Q12HR SC 02/04/25 10:00 02/09/25 09:54 100 MG Metoprolol Tartrate 25 mg BID PO 02/03/25 22:00 02/09/25 09:54 25 MG Acetaminophen/ Hydrocodone Bitart 1 tab Q4HPRN PRN PO 02/04/25 09:15 02/05/25 21:25 1 TAB Acetaminophen 325 mg Q4HP PRN PO 02/06/25 21:45 02/08/25 05:52 325 MG Examination: GENERAL:Normal, LUNGS:Normal, CVS:Normal, NEURO:Normal laboratory and microbiology Laboratory Tests 02/09/25 06:10 Test 02/09/25 06:10 Range/Units Serum Glucose 90 74-106 mg/dL Problem List/Assessment/Plan Problem List/Assessment/Plan Sick sinus syndrome s/p permanent pacemaker implantation (Biotronik) Atrial fibrillation, newly diagnosed Hypertensive urgency Transient ischemic attack Hypothyroidism Morbid obesity Medical noncompliance Plan/Recommendations (Dr. Gorman): Case discussed with . Transthoracic echocardiogram reveals an EF of 60%. Patient noted to have atrial fibrillation, this is a new onset per patient. [id number] score: 3 points, HAS-BLED: 1 point. Continue therapeutic Lovenox (transition to DOAC prior discharge), hold antiarrhythmic agent given unknown duration of arrhythmia. Continue beta-sarita for rate control. Slow ventricular rate reaching as low as 35bpm on cardiac nurse practitioner. Patient also noted to have episodic periods of tachycardia. Given sick sinus syndrome syndrome with syncopal episodes, the patient underwent a permanent pacemaker implantation on 02/02/2025. Interrogation was done on 02/03/2025 which reveals no abnormalities. Pacemaker follow up appointments have been scheduled for 02/10/2025 at 1:00 p.m., 02/14/2025 at 3:30 p.m. and 02/24/2025 at 9:45 a.m in the outpatient cardiology clinic with . Patient was also found to have a high-grade stenosis of the right carotid terminus for which the patient underwent a carotid angiogram on 02/08/2025 which revealed no significant carotid disease. There is no further inpatient cardiac workup indicated at this time. The patient has already been scheduled to follow up in the outpatient cardiac clinic tomorrow on 02/10/2025 for pacemaker wound check. All follow up appointments have been provided to the patient. All questions answered. Thank you for allowing us to care for this patient. Please call with any questions or concerns. This medical document was created using an electronic medical record system with voice recognition software and computerized dictation system. Although this document has been carefully reviewed, there might still be some phonetic and typographical errors. Occasional wrong-word or ``sound-alike substitutions may have occurred due to the inherent limitations of voice recognition software. These areas are purely typographical due to imperfections of the software programs and do not reflect any compromise in the patient's medical care. Please read the chart carefully and recognize, using context, where these substitutions have occurred. Plan discussed with: Patient [facility]ary Evaluation [facility] Encourage and reinforce Dietary compliance Wt management upon D/C Expected Outcomes/Goals: gradual wt loss Date of Service: Feb 09, 2025 Billing Provider: JATINDER RICKS Common Visit Codes: [id number] INP/OBS CARE(HIGH) JATINDER RICKS Feb 09, 2025 14:28
[2025-02-09 15:08] VITALS: BP 130/87; PULSE 86; RESP 18; TEMP 36.7; O2SAT 99
== END 2025-02-09 15:47 | disposition home or self-care (01) | DRG 171 ==
LOC: ER 14:25 → OVERFLOW 22:00 → TELE-WESTW 02-01 03:23
PROVIDERS: ADMIT Student in an Organized Health Care Education/Training Program; ATTEND Student in an Organized Health Care Education/Training Program
PROC: 02H63JZ Insertion of Pacemaker Lead into Right Atrium, Percutaneous Approach (ICD-10-PCS; principal; 2025-02-02)
PROC: 0JH606Z Insertion of Pacemaker, Dual Chamber into Chest Subcutaneous Tissue and Fascia, Open Approach (ICD-10-PCS; 2025-02-02)
PROC: B517YZZ Fluoroscopy of Left Subclavian Vein using Other Contrast (ICD-10-PCS; 2025-02-02)
PROC: 02HK3JZ Insertion of Pacemaker Lead into Right Ventricle, Percutaneous Approach (ICD-10-PCS; 2025-02-02)
PROC: B315YZZ Fluoroscopy of Bilateral Common Carotid Arteries using Other Contrast (ICD-10-PCS; 2025-02-08)
PROC: B31DYZZ Fluoroscopy of Right Vertebral Artery using Other Contrast (ICD-10-PCS; 2025-02-08)
PROC: B318YZZ Fluoroscopy of Bilateral Internal Carotid Arteries using Other Contrast (ICD-10-PCS; 2025-02-08)
PROC: B31CYZZ Fluoroscopy of Bilateral External Carotid Arteries using Other Contrast (ICD-10-PCS; 2025-02-08)
DX: I49.5 Sick sinus syndrome (principal); G45.9 Transient cerebral ischemic attack, unspecified; I48.0 Paroxysmal atrial fibrillation; I16.0 Hypertensive urgency; I44.1 Atrioventricular block, second degree; I65.21 Occlusion and stenosis of right carotid artery; E03.9 Hypothyroidism, unspecified; E66.01 Morbid (severe) obesity due to excess calories; I10 Essential (primary) hypertension; Z91.148 Patient's other noncompliance with medication regimen for other reason; Z80.1 Family history of malignant neoplasm of trachea, bronchus and lung; Z82.49 Family history of ischemic heart disease and other diseases of the circulatory system; Z79.899 Other long term (current) drug therapy
CPT/HCPCS: 33208; 36012; 36223; 36224; 36415; 70450; 70496; 70498; 71045; 80048; 80053; 80061; 80076; 81001; 82306; 82607; 83036; 83735; 83880; 84100; 84439; 84443; 84480; 84484; 85025; 85610; 85730; 93005; 93306; 93886; 99152; 99291; G0378; J2250; Q9967